=== PATIENT | female | born 1995 | race Caucasian/White ===

== ENCOUNTER 2022-08-25 07:01 | Inpatient (IN) ==
[2022-08-25] MEDS ORDERED: LIDOCAINE 1% LOCAL 20 ML VIAL INFIL PRN (07:20)
[2022-08-25] MEDS ORDERED: OXYTOCIN 30 UNITS/500 ML BAG IV PRN ×2 (07:20)
[2022-08-25 07:54] LABS: Hematocrit (blood only) 38.3 % (34.1-44.9); Hemoglobin 13.4 g/dl (12.0-16.0); Mean Corpuscular Volume 94.3 fL (80.0-100.0); Mean Platelet Volume 10.8 fL (9.4-12.3); Platelet Count 242 K/uL (130-400); RDW Coefficient of Variation 13.3 % (11.5-14.5); RDW Standard Deviation 45.5 fL (36.4-46.3); Red Blood Count 4.06 M/uL (3.93-5.22); White Blood Count 12.99 K/ul (4.8-10.8)
[2022-08-25] MEDS: LACTATED RINGER'S 1,000 ML IV PRN ×4 (08:17→21:17)
--- NOTE | 2022-08-25 10:54 | History & Physical Report ---
Date of Service August 25, 2022 Assessment & Plan (1) Polyhydramnios affecting : (2) Gestational diabetes mellitus (GDM) affecting , antepartum: Plan 27 yo G1 at 39 4/7 wga presents for IOL VSS Fetus cat 1 Labor - 1cm on admission, discussed re-attempting kent bulb with pit and pt amenable. 35cc kent placed, pt tolerated well. Did discuss impact of suspected EFW, poly on labor progress, possibility of CPD, would need ot consider judicious use of vacuum if comes to that. Pt and verbalized understanding A1GDM - normal BG on admit GBS neg epidural prn Admission and Anticipated Discharge Date Admission Date: August 25, 2022 History of Present Illness Chief Complaint: IOL Primary Care Provider: Alexandrea Hawk 27 yo G1 at 39 4/7 wga w/ WHIT 08/28 by LMP presents for IOL due to poly, A1GDM. Of note, baby is suspected to be LGA. +FM; denies regular ctx, LOF, VB. Kent bulb was placed last evening but fell out shortly before discharge PNI: Polyhydramnios A1GDM Past [employer] Hx: G1 q25d cycles denies hx STIs 05/2019 neg cyto Allergies Allergy/AdvReac Type Severity Reaction Status Date / Time No Known Allergies Allergy Verified 08/22/22 11:25 Home Medications Medication Instructions Recorded Confirmed Type prenat.vits,dafne,yqz-[id number] 1 tab PO DAILY 01/14/22 08/25/22 History acetone (urine) test (Ketone Urine #50 ea 06/27/22 08/22/22 Rx Test strips) blood sugar diagnostic (OneTouch #150 ea 06/27/22 08/22/22 Rx Verio test strips) blood-glucose meter (OneTouch #1 ea 06/27/22 08/22/22 Rx Verio Reflect Meter) lancets 33 gauge (OneTouch Delica #150 ea 06/27/22 08/22/22 Rx Lancets) Patient History Medical History No chronic diseases present Surgical History S/P wisdom tooth extraction Family History Mother Ovarian cancer Stroke Bladder cancer Grandmother (Maternal) Kidney disease Social History Smoking Status: Never smoker Second Hand Exposure: No; Hx Alcohol Use: No Hx Substance Use: No Preferred Language: Faroese Communication Ability: Effective 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 current occupational status: employed current occupation: [employer]. Other Information That Helps Us Care for You: No Feels Safe at Home: Yes Safety Concerns: Feels Safe At This Time Assistive Devices: None Physical Exam Genitourinary: OB Exam Abdomen: + vertex and + estimated weight (8-9) Manual OB Exam: + cervical dilation 1 cm, + cervical effacement 50% and + station high OB Exam Monitor Tracing: + external FHT monitor used, + external uterine monitor used (irreg) and + category I (140/mod/+accel/-decel) Results & Data ([facility]) Vital Signs (Past 12 Hours) Vital Signs Temp Pulse Resp BP 08/25/22 07:23 98.1 F 18 08/25/22 10:08 92 H 126/78 08/25/22 09:02 90 121/75 08/25/22 08:17 97 H 123/79 08/25/22 07:20 88 135/84 Laboratory Results OB Labs: Blood Type AB Positive 01/21/22 Antibody Screen NEGATIVE 01/21/22 Hemoglobin 12.9 g/dl (12.0-16.0) 06/13/22 Hematocrit 36.4 % (34.1-44.9) 06/13/22 Mean Corpuscular Volume 94.3 fL (80.0-100.0) 06/13/22 Platelet Count 240 K/uL (130-400) 06/13/22 Rubella IgG Antibody Immune (Immune) 01/21/22 Rapid Plasma Reagin Nonreactive (Nonreactive) 01/21/22 Hepatitis B Surface Antigen. NON-REACTIVE (NON-REACTIVE) 01/21/22 Hepatitis C Antibody (EIA) NON-REACTIVE (NON-REACTIVE) 01/21/22 HIV (1&2) Ag and Ab Confirmation NON-REACTIVE (NON-REACTIVE) 01/21/22 Glucose 1 Hour 50 gm Load 139 mg/dl (70-130) H 06/10/22 OB Optional Labs: Chlamydia trachomatis RNA NOT DETECTED (NOT DETECTED) 01/21/22 Neisseria gonorrhoeae RNA NOT DETECTED (NOT DETECTED) 01/21/22 Labs Reviewed: cf/sma neg --smp declines cfDNA, quad and msafp --smp GBS neg Diagnostic Findings 08/06 3745g 98% post plac Coding Level of Care Code None Diagnoses Polyhydramnios affecting O40.9XX0 Gestational diabetes mellitus (GDM) affecting , antepartum O24.419
--- NOTE | 2022-08-25 13:35 | Labor Progress Brief Note ---
Date of Service August 25, 2022 Subjective Feeling better following kent bulb expulsion Assessment & Plan (1) Polyhydramnios affecting : (2) Gestational diabetes mellitus (GDM) affecting , antepartum: Plan 27 yo G1 at 39 4/7 wga presents for IOL VSS Fetus cat 1 Labor - kent bulb out, continue induction A1GDM - normal BG on admit, q4 GBS neg epidural prn Admission and Anticipated Discharge Date Admission Date: August 25, 2022 Physical Exam Genitourinary: Manual OB Exam: + cervical dilation 3 cm, + cervical effacement 50% and + station high OB Exam Monitor Tracing: + external FHT monitor used, + external uterine monitor used (q4) and + category I (135-140/mod/+accel/-decel) Results & Data ([facility]) Vital Signs (Past 12 Hours) Vital Signs Temp Pulse Resp BP 08/25/22 07:23 98.1 F 18 08/25/22 13:08 99 H 18 130/85 08/25/22 12:14 92 H 133/91 08/25/22 11:04 98.1 F 98 H 16 121/76 08/25/22 10:08 92 H 126/78 08/25/22 09:02 90 121/75 08/25/22 08:17 97 H 123/79 08/25/22 07:20 88 135/84 Coding Level of Care Code None Diagnoses Polyhydramnios affecting O40.9XX0 Gestational diabetes mellitus (GDM) affecting , antepartum O24.419
[2022-08-25] MEDS ORDERED: fentaNYL citrate 100 MCG/2 ML VIAL ONE (17:05)
[2022-08-25] MEDS ORDERED: ePHEDrine sulfate 50 MG/ML AMP ONE (17:05)
[2022-08-25] MEDS ORDERED: SODIUM CHLORIDE 0.9% INJ 10 ML VIAL ONE (17:05)
[2022-08-25] MEDS ORDERED: BUPIVACAINE 0.25% 30 ML VIAL ONE (17:05)
[2022-08-25] MEDS ORDERED: LIDOCAINE 2%/EPINEPHRINE 1:200,000 20 ML SDV ONE (17:05)
[2022-08-25] MEDS ORDERED: fentaNYL 2MCG/ML ROPIVACAINE 1.25MG/ML 100 ML BAG EPI ONE (17:06)
[2022-08-25] MEDS ORDERED: ePHEDrine sulfate 50 MG/ML AMP IV PRN (18:01)
[2022-08-25] MEDS ORDERED: diphenhydrAMINE 50 MG/ML VIAL IV PRN (18:01)
[2022-08-25] MEDS ORDERED: NALOXONE HCL 1 MG in SODIUM CHLORIDE 0.9% 1000ML 1,000 ML IV PRN (18:01)
[2022-08-25] MEDS ORDERED: fentaNYL 2MCG/ML ROPIVACAINE 1.25MG/ML 100 ML BAG EPI PRN (18:01)
[2022-08-25] MEDS ORDERED: NALOXONE HCL 0.4 MG/1 ML VIAL/CARP IV PRN (18:01)
[2022-08-25] MEDS ORDERED: NALBUPHINE HCL INJ 10 MG/ML AMP IV PRN (18:01)
--- NOTE | 2022-08-25 18:01 | Anesthesiology Consultation ---
Date of Service August 25, 2022 Assessment & Plan Chart Review Chart Review: Acceptable Risk for Labor Epidural Consults Requested none History Height/Weight Height: 5 ft Weight: 75.296 kg Allergies Allergy/AdvReac Type Severity Reaction Status Date / Time No Known Allergies Allergy Verified 08/22/22 11:25 Medications Home Medications Medication Instructions Recorded Confirmed Last Taken prenat.vits,dafne,uds-rwmt-mkogx 1 tab PO DAILY 01/14/22 08/25/22 08/24/22 acetone (urine) test (Ketone Urine #50 ea 06/27/22 08/22/22 Unknown Test strips) blood sugar diagnostic (OneTouch #150 ea 06/27/22 08/22/22 Unknown Verio test strips) blood-glucose meter (OneTouch #1 ea 06/27/22 08/22/22 Unknown Verio Reflect Meter) lancets 33 gauge (OneTouch Delica #150 ea 06/27/22 08/22/22 Unknown Lancets) Active Medications Generic Name Dose Route Start Last Admin Trade Name Freq PRN Reason Stop Dose Admin Oxytocin 30 units in 500 mls @ 10 mls/hr 08/25/22 07:20 08/25/22 14:00 Pitocin IV 08/27/22 07:19 0.6 units/hr .Q24H PRN 10 mls/hr Labor Induction/Augmentation Titration Protocol 0.6 UNITS/HR Lactated Ringer's 1,000 mls @ 125 mls/hr 08/25/22 07:20 08/25/22 17:00 Lr IV 08/27/22 07:19 999 mls/hr .Q8H PRN Administration L&D Protocol Protocol Past Medical History Medical History No chronic diseases present Past Family History Family History Mother Ovarian cancer Stroke Bladder cancer Grandmother (Maternal) Kidney disease Past Surgical History Surgical History S/P wisdom tooth extraction Social History Smoking Status: Never smoker Hx Alcohol Use: No Hx Substance Use: No substance use type: does not use Physical Exam Vital Signs Last Vital Signs Temp 36.6 C 08/25/22 15:00 Pulse 88 08/25/22 18:00 Resp 18 08/25/22 15:00 BP 117/65 08/25/22 18:00 Pulse Ox 99 08/25/22 17:56 Testing Laboratory Results 08/25/22 07:40 08/25/22 08/25/22 08/25/22 16:01 12:16 07:47 POC Glucose 91 82 85
--- NOTE | 2022-08-25 18:35 | Labor Progress Brief Note ---
Date of Service August 25, 2022 Subjective comfortable w/epidural Assessment & Plan (1) Polyhydramnios affecting : (2) Gestational diabetes mellitus (GDM) affecting , antepartum: Plan 27 yo G1 at 39 4/7 wga presents for IOL VSS Fetus cat 1 Labor - pit at 10, now s/p arom. Continue induction A1GDM - normal BG on admit, q4 GBS neg epidural in place Admission and Anticipated Discharge Date Admission Date: August 25, 2022 Physical Exam Genitourinary: Manual OB Exam: + cervical dilation 4 cm, + cervical effacement 50%, + station -2 and + amniotic fluid (arom clear) OB Exam Monitor Tracing: + external FHT monitor used, + external uterine monitor used (q2-4) and + category I (135-140/mod/+accel/-decel) Results & Data ([facility]) Vital Signs (Past 12 Hours) Vital Signs Temp Pulse Resp BP Pulse Ox 08/25/22 18:00 18 08/25/22 07:23 98.1 F 18 08/25/22 18:31 95 H 100 08/25/22 18:27 78 147/77 H 08/25/22 18:26 79 100 08/25/22 18:21 86 99 08/25/22 18:22 81 108/55 L 08/25/22 18:16 93 H 98 08/25/22 18:17 93 H 107/63 08/25/22 18:11 94 H 99 08/25/22 18:12 93 H 109/55 L 08/25/22 18:06 96 H 100 08/25/22 18:07 97 H 124/59 L 08/25/22 18:01 105 H 99 08/25/22 18:00 88 117/65 08/25/22 17:58 109 H 118/68 08/25/22 17:56 99 08/25/22 17:56 90 08/25/22 17:56 84 120/66 08/25/22 17:54 94 H 122/66 08/25/22 17:51 100 H 100 08/25/22 17:46 105 H 100 08/25/22 17:41 101 H 100 08/25/22 17:36 120 H 100 08/25/22 17:31 115 H 99 08/25/22 17:26 117 H 99 08/25/22 17:21 129 H 98 08/25/22 17:16 121 H 97 08/25/22 17:02 114 H 129/85 08/25/22 16:02 99 H 130/83 08/25/22 15:00 18 08/25/22 15:00 97.9 F 18 08/25/22 14:58 99 H 130/85 08/25/22 13:58 88 131/76 08/25/22 13:08 99 H 18 130/85 08/25/22 12:14 92 H 133/91 08/25/22 11:04 98.1 F 98 H 16 121/76 08/25/22 10:08 92 H 126/78 08/25/22 09:02 90 121/75 08/25/22 08:17 97 H 123/79 08/25/22 07:20 88 135/84 Coding Level of Care Code None Diagnoses Polyhydramnios affecting O40.9XX0 Gestational diabetes mellitus (GDM) affecting , antepartum O24.419
--- NOTE | 2022-08-26 00:13 | Labor Progress Brief Note ---
Date of Service August 26, 2022 Subjective resting comfortably, occ pressure Assessment & Plan (1) Polyhydramnios affecting : (2) Gestational diabetes mellitus (GDM) affecting , antepartum: Plan 27 yo G1 at 39 4/7 wga presents for IOL VSS Fetus cat 1 Labor - pit at 12, progress noted in effacement and station. Feels like baby was maybe asynclitic earlier and can feel where it was so will continue maternal repositioning to see if will help exam A1GDM GBS neg epidural in place Admission and Anticipated Discharge Date Admission Date: August 25, 2022 Physical Exam Genitourinary: Manual OB Exam: + cervical dilation 4 cm, + cervical effacement 60% and + station -2 and -1 OB Exam Monitor Tracing: + external FHT monitor used, + external uterine monitor used (q2-4) and + category I (125/mod/+accel/occ early decel) Results & Data ([facility]) Vital Signs (Past 12 Hours) Vital Signs Temp Pulse Resp BP Pulse Ox 08/25/22 18:00 18 08/26/22 00:06 129 H 99 08/26/22 00:01 121 H 98 08/25/22 23:56 122 H 98 08/25/22 23:51 139 H 98 08/25/22 23:46 133 H 99 08/25/22 23:41 124 H 97 08/25/22 23:36 126 H 99 08/25/22 23:37 127 H 127/66 08/25/22 23:31 126 H 96 08/25/22 23:26 117 H 96 08/25/22 23:22 123 H 123/61 08/25/22 23:21 118 H 96 08/25/22 23:16 120 H 96 08/25/22 23:11 117 H 97 08/25/22 23:06 121 H 96 08/25/22 23:07 120 H 126/66 08/25/22 23:01 111 H 97 08/25/22 22:56 112 H 97 08/25/22 22:52 116 H 132/72 08/25/22 22:51 127 H 98 08/25/22 22:46 108 H 97 08/25/22 22:41 108 H 97 08/25/22 22:36 113 H 97 08/25/22 22:37 114 H 119/70 08/25/22 22:31 114 H 97 08/25/22 22:26 110 H 99 08/25/22 22:24 115 H 135/80 08/25/22 22:21 108 H 99 08/25/22 22:16 107 H 99 08/25/22 22:11 111 H 98 08/25/22 22:08 104 H 126/69 08/25/22 22:06 117 H 99 08/25/22 22:01 109 H 100 08/25/22 21:56 113 H 97 08/25/22 21:52 108 H 135/88 08/25/22 21:51 106 H 98 08/25/22 21:46 115 H 99 08/25/22 21:41 102 H 100 08/25/22 21:36 120 H 100 08/25/22 21:37 106 H 119/61 08/25/22 21:31 98 H 98 08/25/22 21:26 112 H 98 08/25/22 21:21 108 H 98 08/25/22 21:22 109 H 121/59 L 08/25/22 21:16 100 H 98 08/25/22 21:11 102 H 98 08/25/22 21:08 106 H 123/56 L 08/25/22 21:06 101 H 98 08/25/22 21:01 100 H 98 08/25/22 20:56 120 H 100 08/25/22 20:51 120 H 96 08/25/22 20:52 98.6 F 125 H 16 127/73 08/25/22 20:46 112 H 99 08/25/22 20:41 110 H 99 08/25/22 20:39 115 H 133/74 08/25/22 20:36 111 H 98 08/25/22 20:31 124 H 99 08/25/22 20:26 114 H 98 08/25/22 20:23 117 H 131/73 08/25/22 20:21 146 H 100 08/25/22 20:16 111 H 100 08/25/22 20:11 109 H 100 08/25/22 20:08 106 H 132/72 08/25/22 20:06 107 H 98 08/25/22 20:01 107 H 99 08/25/22 19:56 108 H 99 08/25/22 19:51 113 H 100 08/25/22 19:52 107 H 140/75 08/25/22 19:46 106 H 100 08/25/22 19:41 101 H 99 08/25/22 19:38 103 H 128/72 08/25/22 19:36 102 H 100 08/25/22 19:31 119 H 100 08/25/22 19:26 112 H 99 08/25/22 19:23 93 H 126/70 08/25/22 19:21 102 H 100 08/25/22 19:16 99 H 99 08/25/22 19:11 106 H 99 08/25/22 19:06 98.6 F 98 H 17 125/67 100 08/25/22 18:45 16 08/25/22 18:45 16 08/25/22 19:01 97 H 100 08/25/22 19:02 99 H 138/72 08/25/22 18:56 98 H 123/73 99 08/25/22 18:51 102 H 100 08/25/22 18:52 97 H 124/72 08/25/22 18:48 88 122/73 08/25/22 18:46 96 H 99 08/25/22 18:15 18 08/25/22 18:15 18 08/25/22 18:30 18 08/25/22 18:30 99.1 F 18 08/25/22 18:41 93 H 127/70 100 08/25/22 18:36 90 118/63 99 08/25/22 18:33 94 H 128/74 08/25/22 18:31 95 H 100 08/25/22 18:27 78 147/77 H 08/25/22 18:26 79 100 08/25/22 18:21 86 99 08/25/22 18:22 81 108/55 L 08/25/22 18:16 93 H 98 08/25/22 18:17 93 H 107/63 08/25/22 18:11 94 H 99 08/25/22 18:12 93 H 109/55 L 08/25/22 18:06 96 H 100 08/25/22 18:07 97 H 124/59 L 08/25/22 18:01 105 H 99 08/25/22 18:00 88 117/65 08/25/22 17:58 109 H 118/68 08/25/22 17:56 99 08/25/22 17:56 90 08/25/22 17:56 84 120/66 08/25/22 17:54 94 H 122/66 08/25/22 17:51 100 H 100 08/25/22 17:46 105 H 100 08/25/22 17:41 101 H 100 08/25/22 17:36 120 H 100 08/25/22 17:31 115 H 99 08/25/22 17:26 117 H 99 08/25/22 17:21 129 H 98 08/25/22 17:16 121 H 97 08/25/22 17:02 114 H 129/85 08/25/22 16:02 99 H 130/83 08/25/22 15:00 18 08/25/22 15:00 97.9 F 18 08/25/22 14:58 99 H 130/85 08/25/22 13:58 88 131/76 08/25/22 13:08 99 H 18 130/85 08/25/22 12:14 92 H 133/91 Coding Level of Care Code None Diagnoses Polyhydramnios affecting O40.9XX0 Gestational diabetes mellitus (GDM) affecting , antepartum O24.419
[2022-08-26] MEDS ORDERED: NURSING L&D Epidural Breakthrough Pain Update ONE (02:44)
[2022-08-26] MEDS ORDERED: fentaNYL citrate 100 MCG/2 ML VIAL ONE ×2 (02:48→06:15)
--- NOTE | 2022-08-26 02:56 | Communication Note ---
Date of Service: August 26, 2022 Called by staff for pt c/o pain Bolused epidural with 5cc 2% lidocaine plus fentanyl 100mcg.
[2022-08-26] MEDS: LACTATED RINGER'S 1,000 ML IV PRN (05:13)
--- NOTE | 2022-08-26 06:00 | Labor Progress Brief Note ---
Date of Service August 26, 2022 Subjective Feeling back pain Assessment & Plan (1) Polyhydramnios affecting : (2) Gestational diabetes mellitus (GDM) affecting , antepartum: Plan 27 yo G1 at 39 4/7 wga presents for IOL VSS Fetus cat 1 Labor - pit at 16, progress noted. ?OP position due to back pain, pt requesting redose so will try to get. Continue maternal repositioning to try to change positioning A1GDM GBS neg epidural in place Admission and Anticipated Discharge Date Admission Date: August 25, 2022 Physical Exam Genitourinary: Manual OB Exam: + cervical dilation 6 cm, + cervical effacement 70% and + station 0 OB Exam Monitor Tracing: + external FHT monitor used, + external uterine monitor used (q2-4) and + category I (125-130/mod/+accel/occ early decel) Results & Data ([facility]) Vital Signs (Past 12 Hours) Vital Signs Temp Pulse Resp BP Pulse Ox 08/25/22 18:00 18 08/26/22 05:56 132 H 99 08/26/22 05:54 137 H 136/94 08/26/22 05:51 141 H 97 08/26/22 05:46 128 H 100 08/26/22 05:41 133 H 95 08/26/22 05:36 128 H 100 08/26/22 05:31 139 H 100 08/26/22 05:26 132 H 99 08/26/22 05:24 130 H 134/79 08/26/22 05:21 128 H 98 08/26/22 05:16 130 H 99 08/26/22 05:11 128 H 96 08/26/22 05:08 127 H 121/58 L 08/26/22 05:06 127 H 100 08/26/22 05:01 126 H 98 08/26/22 04:56 134 H 99 08/26/22 04:53 120 H 132/65 08/26/22 04:51 119 H 98 08/26/22 04:46 126 H 99 08/26/22 04:41 120 H 98 08/26/22 04:39 120 H 129/67 08/26/22 04:36 118 H 98 08/26/22 04:31 125 H 97 08/26/22 04:26 123 H 98 08/26/22 04:24 98.6 F 123 H 16 118/67 08/26/22 04:21 122 H 95 08/26/22 04:18 124 H 94 08/26/22 04:16 116 H 95 08/26/22 04:11 115 H 100 08/26/22 04:06 136 H 99 08/26/22 04:03 121 H 123/71 08/26/22 04:01 124 H 97 08/26/22 03:59 105 H 135/75 08/26/22 03:56 122 H 97 08/26/22 03:53 107 H 128/67 08/26/22 03:51 116 H 97 08/26/22 03:48 112 H 130/71 08/26/22 03:46 118 H 98 08/26/22 03:43 114 H 128/72 08/26/22 03:41 113 H 97 08/26/22 03:38 117 H 122/66 08/26/22 03:36 116 H 97 08/26/22 03:33 113 H 127/69 08/26/22 03:31 115 H 96 08/26/22 03:28 115 H 116/53 L 08/26/22 03:26 110 H 96 08/26/22 03:23 112 H 108/51 L 08/26/22 03:21 113 H 96 08/26/22 03:19 109 H 112/57 L 08/26/22 03:16 119 H 96 08/26/22 03:14 109 H 111/54 L 08/26/22 03:11 109 H 96 08/26/22 03:09 111 H 109/54 L 08/26/22 03:06 111 H 96 08/26/22 03:03 123 H 120/55 L 08/26/22 03:01 121 H 97 08/26/22 02:56 101 H 97 08/26/22 02:55 122 H 127/76 08/26/22 02:53 103 H 121/70 08/26/22 02:51 108 H 96 08/26/22 02:50 113 H 129/76 08/26/22 02:46 116 H 95 08/26/22 02:41 128 H 97 08/26/22 02:37 121 H 127/72 08/26/22 02:36 118 H 97 08/26/22 02:31 124 H 100 08/26/22 02:26 116 H 100 08/26/22 02:21 123 H 100 08/26/22 02:22 117 H 120/67 08/26/22 02:18 122 H 92 08/26/22 02:16 128 H 98 08/26/22 02:11 119 H 96 08/26/22 02:08 98.2 F 107 H 18 126/65 08/26/22 02:06 110 H 97 08/26/22 02:01 117 H 97 08/26/22 01:56 115 H 100 08/26/22 01:54 116 H 115/57 L 08/26/22 01:51 111 H 100 08/26/22 01:46 115 H 100 08/26/22 01:41 118 H 99 08/26/22 01:37 120 H 121/57 L 08/26/22 01:36 126 H 98 08/26/22 01:31 132 H 99 08/26/22 01:26 125 H 96 08/26/22 01:21 121 H 98 08/26/22 01:22 120 H 140/78 08/26/22 01:16 130 H 100 08/26/22 01:11 124 H 98 08/26/22 01:09 127 H 131/75 08/26/22 01:06 115 H 98 08/26/22 01:01 118 H 97 08/26/22 00:56 120 H 98 08/26/22 00:51 120 H 100 08/26/22 00:46 118 H 98 08/26/22 00:41 111 H 100 08/26/22 00:39 98.4 F 112 H 16 138/96 08/26/22 00:36 105 H 98 08/26/22 00:31 127 H 99 08/26/22 00:26 102 H 100 08/26/22 00:22 111 H 124/57 L 08/26/22 00:21 108 H 98 08/26/22 00:16 115 H 98 08/26/22 00:11 113 H 99 08/26/22 00:07 134 H 132/57 L 08/26/22 00:06 129 H 99 08/26/22 00:01 121 H 98 08/25/22 23:56 122 H 98 08/25/22 23:51 139 H 98 08/25/22 23:46 133 H 99 08/25/22 23:41 124 H 97 08/25/22 23:36 126 H 99 08/25/22 23:37 127 H 127/66 08/25/22 23:31 126 H 96 08/25/22 23:26 117 H 96 08/25/22 23:22 123 H 123/61 08/25/22 23:21 118 H 96 08/25/22 23:16 120 H 96 08/25/22 23:11 117 H 97 08/25/22 23:06 121 H 96 08/25/22 23:07 120 H 126/66 08/25/22 23:01 111 H 97 08/25/22 22:56 112 H 97 08/25/22 22:52 116 H 132/72 08/25/22 22:51 127 H 98 08/25/22 22:46 108 H 97 08/25/22 22:41 108 H 97 08/25/22 22:36 113 H 97 08/25/22 22:37 114 H 119/70 08/25/22 22:31 114 H 97 08/25/22 22:26 110 H 99 08/25/22 22:24 115 H 135/80 08/25/22 22:21 108 H 99 08/25/22 22:16 107 H 99 08/25/22 22:11 111 H 98 08/25/22 22:08 104 H 126/69 08/25/22 22:06 117 H 99 08/25/22 22:01 109 H 100 08/25/22 21:56 113 H 97 08/25/22 21:52 108 H 135/88 08/25/22 21:51 106 H 98 08/25/22 21:46 115 H 99 08/25/22 21:41 102 H 100 08/25/22 21:36 120 H 100 08/25/22 21:37 106 H 119/61 08/25/22 21:31 98 H 98 08/25/22 21:26 112 H 98 08/25/22 21:21 108 H 98 08/25/22 21:22 109 H 121/59 L 08/25/22 21:16 100 H 98 08/25/22 21:11 102 H 98 08/25/22 21:08 106 H 123/56 L 08/25/22 21:06 101 H 98 08/25/22 21:01 100 H 98 08/25/22 20:56 120 H 100 08/25/22 20:51 120 H 96 08/25/22 20:52 98.6 F 125 H 16 127/73 08/25/22 20:46 112 H 99 08/25/22 20:41 110 H 99 08/25/22 20:39 115 H 133/74 08/25/22 20:36 111 H 98 08/25/22 20:31 124 H 99 08/25/22 20:26 114 H 98 08/25/22 20:23 117 H 131/73 08/25/22 20:21 146 H 100 08/25/22 20:16 111 H 100 08/25/22 20:11 109 H 100 08/25/22 20:08 106 H 132/72 08/25/22 20:06 107 H 98 08/25/22 20:01 107 H 99 08/25/22 19:56 108 H 99 08/25/22 19:51 113 H 100 08/25/22 19:52 107 H 140/75 08/25/22 19:46 106 H 100 08/25/22 19:41 101 H 99 08/25/22 19:38 103 H 128/72 08/25/22 19:36 102 H 100 08/25/22 19:31 119 H 100 08/25/22 19:26 112 H 99 08/25/22 19:23 93 H 126/70 08/25/22 19:21 102 H 100 08/25/22 19:16 99 H 99 08/25/22 19:11 106 H 99 08/25/22 19:06 98.6 F 98 H 17 125/67 100 08/25/22 18:45 16 08/25/22 18:45 16 08/25/22 19:01 97 H 100 08/25/22 19:02 99 H 138/72 08/25/22 18:56 98 H 123/73 99 08/25/22 18:51 102 H 100 08/25/22 18:52 97 H 124/72 08/25/22 18:48 88 122/73 08/25/22 18:46 96 H 99 08/25/22 18:15 18 08/25/22 18:15 18 08/25/22 18:30 18 08/25/22 18:30 99.1 F 18 08/25/22 18:41 93 H 127/70 100 08/25/22 18:36 90 118/63 99 08/25/22 18:33 94 H 128/74 08/25/22 18:31 95 H 100 08/25/22 18:27 78 147/77 H 08/25/22 18:26 79 100 08/25/22 18:21 86 99 08/25/22 18:22 81 108/55 L 08/25/22 18:16 93 H 98 08/25/22 18:17 93 H 107/63 08/25/22 18:11 94 H 99 08/25/22 18:12 93 H 109/55 L 08/25/22 18:06 96 H 100 08/25/22 18:07 97 H 124/59 L 08/25/22 18:01 105 H 99 08/25/22 18:00 88 117/65 Coding Level of Care Code None Diagnoses Polyhydramnios affecting O40.9XX0 Gestational diabetes mellitus (GDM) affecting , antepartum O24.419
--- NOTE | 2022-08-26 06:35 | Communication Note ---
Date of Service: August 26, 2022 Called by RN for pt c/o pain. 2% lido 5cc plus fentanyl 100mcg given. After several minutes, nurse reported that pt stated she was pain free and fell asl eep.
[2022-08-26] MEDS ORDERED: ROPIVACAINE 0.5% 5 MG/ML 30 ML VIAL ONE ×2 (08:17→11:28)
[2022-08-26] MEDS ORDERED: LIDOCAINE 2%/EPINEPHRINE 1:200,000 20 ML SDV ONE (08:17)
--- NOTE | 2022-08-26 09:39 | Labor Progress Brief Note ---
Date of Service August 26, 2022 Subjective I met patient in room 422 after receiving signout from Alisa and an update from FLORENCIA Mena. Patient's chart including course of her induction thus far was reviewed. On Aug 06, 2022, patient had EFW of 3745g +/- 547g (8lb 4oz) per ultrasound. Upper end of range was therefore 4292gm. Her scheduled IOL was set for Aug 25, 2022. The patient was gestational diabetic and made aware of the implications for delivery, and preferred vaginal delivery attempt. Patient had kent placed the night before last. It came out rather quickly. She was admitted yesterday morning and felt to be 1cm so new kent was placed as pitocin was started. Patient underwent AROM at about 1830 last night. Patient was checked by nursing overnight and felt to have reached 9cm. She was checked by Alisa at 6:00 and felt to be 6cm, with pit @ 16. She was painful and requested epidural redose at 6:30. At 7:30 she had a cervical exam by nursing who felt she was 8cm. At 8:30 patient requested and received another epidural redose. At 8:40 I met and examined the patient and found her to be 6cm/90/0 with significant caput succedaneum and molding present. I counseled the patient and FOB on these findings, explaining each in detail. I acknowledged the challenge of cervical exams when significant molding and caput are present which likely accounts for nursing exams ranging from 8-9cm and up to 100% effacement. Ultimately I agree with Dr. Cuellar and that I suspect no true cervical change has occurred since at least 6am today. Pitocin was at 20 at the time of that exam. I explained the role of an IUPC in garnering data on contraction strength and helping decide whether additional pitocin is required to achieve delivery, or whether the size is incompatible with passage through the pelvis. I discussed the risks and benefits. They voiced agreement to placement of that device, which was accomplished without difficulty, and the device filled with clear amniotic fluid. I asked if they had preferences I should be aware of as I was assuming care at the start of a shift. Patient voiced that she is "getting tired of this and wants to have the baby soon." FOB voiced that he "wants to see her at least push before we go to a ." I acknowledged both of their wishes. I explained to FOB that I would be most happy if we can achieve both pushing and vaginal delivery with a safe outcome for all. However, in order to push she needs to reach complete cervical dilation, and doing that requires the head to be able to press upon the cervix until it fully opens. The IUPC and pitocin are the tools we use to try to make that happen if it is able to happen, which depends to some degree upon the size of the baby and the size of the pelvis being compatible. He voiced understanding. Assessment & Plan (1) Gestational diabetes mellitus (GDM) affecting , antepartum: Plan: See above. Per patient and FOB wishes, IOL proceeds with LGA, Poly, GDM all acknowledged. Pt and FOB made aware of concerns for cephalopelvic disproportion at several points along this past month, including today by this physician, and voice interest in continuing IOL process. IUPC placed and at this time individual contraction strength is excellent so pitocin ceiling not increased above 20. status reassuring and will continue with assessment of cervical progress over time. (2) Polyhydramnios affecting : (3) Encounter for induction of labor: Admission and Anticipated Discharge Date Admission Date: August 25, 2022 Physical Exam Physical Exam: Resting semi-milligan R tilt, not masked, FOB at bedside with mask on. Constitutional: well developed and well nourished; no acute distress Eyes: + anicteric sclerae Respiratory: Breathing unlabored Genitourinary: see above. FHT Cat 1. Initial few ctx with MVU 50-75 but pattern does show coupling and grouping. Results & Data ([facility]) Vital Signs (Past 12 Hours) Vital Signs Temp Pulse Resp BP Pulse Ox 08/26/22 07:05 99.5 F 18 08/26/22 09:16 103 H 99 08/26/22 09:14 107 H 125/70 08/26/22 09:11 112 H 97 08/26/22 08:30 18 08/26/22 08:30 18 08/26/22 09:10 112 H 121/68 08/26/22 09:06 110 H 97 08/26/22 09:04 108 H 124/67 08/26/22 09:01 118 H 98 08/26/22 08:59 109 H 128/70 08/26/22 08:56 119 H 99 08/26/22 08:54 126 H 121/69 08/26/22 08:51 128 H 99 08/26/22 08:49 125 H 132/78 08/26/22 08:46 125 H 98 08/26/22 08:44 133 H 125/69 08/26/22 08:41 122 H 99 08/26/22 08:39 122 H 128/77 08/26/22 08:36 136 H 98 08/26/22 08:34 129 H 127/74 08/26/22 08:31 127 H 123/76 98 08/26/22 08:26 119 H 97 08/26/22 08:25 112 H 137/77 08/26/22 08:21 112 H 98 08/26/22 08:19 120 H 139/82 08/26/22 08:07 99.0 F 08/26/22 07:05 18 08/26/22 07:05 99.5 F 18 08/26/22 08:16 132 H 98 08/26/22 08:15 118 H 132/80 08/26/22 08:11 137 H 99 08/26/22 08:09 136 H 127/76 08/26/22 08:06 130 H 99 08/26/22 08:04 142 H 120/67 08/26/22 08:01 151 H 98 08/26/22 07:56 155 H 95 08/26/22 07:55 114 H 157/79 H 08/26/22 07:51 122 H 98 08/26/22 07:50 118 H 104/58 L 08/26/22 07:46 120 H 108/59 L 97 08/26/22 07:41 128 H 96 08/26/22 07:40 130 H 127/75 08/26/22 07:36 148 H 97 08/26/22 07:35 141 H 120/67 08/26/22 07:31 121 H 96 08/26/22 07:30 141 H 119/56 L 08/26/22 07:26 129 H 97 08/26/22 07:25 121 H 121/59 L 08/26/22 07:21 116 H 96 08/26/22 07:20 116 H 109/58 L 08/26/22 07:16 120 H 95 08/26/22 07:15 113 H 110/56 L 08/26/22 07:11 95 08/26/22 07:11 125 H 08/26/22 07:11 118 H 113/53 L 08/26/22 07:06 121 H 95 08/26/22 07:04 123 H 117/53 L 08/26/22 07:01 117 H 95 08/26/22 07:00 120 H 107/52 L 08/26/22 06:56 120 H 95 08/26/22 06:54 123 H 104/54 L 08/26/22 06:51 113 H 111/51 L 96 08/26/22 06:46 114 H 96 08/26/22 06:45 121 H 107/52 L 08/26/22 06:41 122 H 96 08/26/22 06:39 112 H 106/51 L 08/26/22 06:36 97 08/26/22 06:36 119 H 08/26/22 06:36 117 H 105/55 L 08/26/22 06:31 117 H 97 08/26/22 06:29 118 H 110/55 L 08/26/22 06:26 110 H 97 08/26/22 06:25 114 H 110/51 L 08/26/22 06:21 108 H 103/54 L 97 08/26/22 06:16 116 H 100 08/26/22 06:14 97.9 F 117 H 16 126/89 08/26/22 06:11 143 H 99 08/26/22 06:06 120 H 99 08/26/22 06:01 125 H 97 08/26/22 05:56 132 H 99 08/26/22 05:54 137 H 136/94 08/26/22 05:51 141 H 97 08/26/22 05:46 128 H 100 08/26/22 05:41 133 H 95 08/26/22 05:36 128 H 100 08/26/22 05:31 139 H 100 08/26/22 05:26 132 H 99 08/26/22 05:24 130 H 134/79 08/26/22 05:21 128 H 98 08/26/22 05:16 130 H 99 08/26/22 05:11 128 H 96 08/26/22 05:08 127 H 121/58 L 08/26/22 05:06 127 H 100 08/26/22 05:01 126 H 98 08/26/22 04:56 134 H 99 08/26/22 04:53 120 H 132/65 08/26/22 04:51 119 H 98 08/26/22 04:46 126 H 99 08/26/22 04:41 120 H 98 08/26/22 04:39 120 H 129/67 08/26/22 04:36 118 H 98 08/26/22 04:31 125 H 97 08/26/22 04:26 123 H 98 08/26/22 04:24 98.6 F 123 H 16 118/67 08/26/22 04:21 122 H 95 08/26/22 04:18 124 H 94 08/26/22 04:16 116 H 95 08/26/22 04:11 115 H 100 08/26/22 04:06 136 H 99 08/26/22 04:03 121 H 123/71 08/26/22 04:01 124 H 97 08/26/22 03:59 105 H 135/75 08/26/22 03:56 122 H 97 08/26/22 03:53 107 H 128/67 08/26/22 03:51 116 H 97 08/26/22 03:48 112 H 130/71 08/26/22 03:46 118 H 98 08/26/22 03:43 114 H 128/72 08/26/22 03:41 113 H 97 08/26/22 03:38 117 H 122/66 08/26/22 03:36 116 H 97 08/26/22 03:33 113 H 127/69 08/26/22 03:31 115 H 96 08/26/22 03:28 115 H 116/53 L 08/26/22 03:26 110 H 96 08/26/22 03:23 112 H 108/51 L 08/26/22 03:21 113 H 96 08/26/22 03:19 109 H 112/57 L 08/26/22 03:16 119 H 96 08/26/22 03:14 109 H 111/54 L 08/26/22 03:11 109 H 96 08/26/22 03:09 111 H 109/54 L 08/26/22 03:06 111 H 96 08/26/22 03:03 123 H 120/55 L 08/26/22 03:01 121 H 97 08/26/22 02:56 101 H 97 08/26/22 02:55 122 H 127/76 08/26/22 02:53 103 H 121/70 08/26/22 02:51 108 H 96 08/26/22 02:50 113 H 129/76 08/26/22 02:46 116 H 95 08/26/22 02:41 128 H 97 08/26/22 02:37 121 H 127/72 08/26/22 02:36 118 H 97 08/26/22 02:31 124 H 100 08/26/22 02:26 116 H 100 08/26/22 02:21 123 H 100 08/26/22 02:22 117 H 120/67 08/26/22 02:18 122 H 92 08/26/22 02:16 128 H 98 08/26/22 02:11 119 H 96 08/26/22 02:08 98.2 F 107 H 18 126/65 08/26/22 02:06 110 H 97 08/26/22 02:01 117 H 97 08/26/22 01:56 115 H 100 08/26/22 01:54 116 H 115/57 L 08/26/22 01:51 111 H 100 08/26/22 01:46 115 H 100 08/26/22 01:41 118 H 99 08/26/22 01:37 120 H 121/57 L 08/26/22 01:36 126 H 98 08/26/22 01:31 132 H 99 08/26/22 01:26 125 H 96 08/26/22 01:21 121 H 98 08/26/22 01:22 120 H 140/78 08/26/22 01:16 130 H 100 08/26/22 01:11 124 H 98 08/26/22 01:09 127 H 131/75 08/26/22 01:06 115 H 98 08/26/22 01:01 118 H 97 08/26/22 00:56 120 H 98 08/26/22 00:51 120 H 100 08/26/22 00:46 118 H 98 08/26/22 00:41 111 H 100 08/26/22 00:39 98.4 F 112 H 16 138/96 08/26/22 00:36 105 H 98 08/26/22 00:31 127 H 99 08/26/22 00:26 102 H 100 08/26/22 00:22 111 H 124/57 L 08/26/22 00:21 108 H 98 08/26/22 00:16 115 H 98 08/26/22 00:11 113 H 99 08/26/22 00:07 134 H 132/57 L 08/26/22 00:06 129 H 99 08/26/22 00:01 121 H 98 08/25/22 23:56 122 H 98 08/25/22 23:51 139 H 98 08/25/22 23:46 133 H 99 08/25/22 23:41 124 H 97 08/25/22 23:36 126 H 99 08/25/22 23:37 127 H 127/66 08/25/22 23:31 126 H 96 08/25/22 23:26 117 H 96 08/25/22 23:22 123 H 123/61 08/25/22 23:21 118 H 96 08/25/22 23:16 120 H 96 08/25/22 23:11 117 H 97 08/25/22 23:06 121 H 96 08/25/22 23:07 120 H 126/66 08/25/22 23:01 111 H 97 08/25/22 22:56 112 H 97 08/25/22 22:52 116 H 132/72 08/25/22 22:51 127 H 98 08/25/22 22:46 108 H 97 08/25/22 22:41 108 H 97 08/25/22 22:36 113 H 97 08/25/22 22:37 114 H 119/70 08/25/22 22:31 114 H 97 08/25/22 22:26 110 H 99 08/25/22 22:24 115 H 135/80 08/25/22 22:21 108 H 99 08/25/22 22:16 107 H 99 08/25/22 22:11 111 H 98 08/25/22 22:08 104 H 126/69 08/25/22 22:06 117 H 99 08/25/22 22:01 109 H 100 08/25/22 21:56 113 H 97 08/25/22 21:52 108 H 135/88 08/25/22 21:51 106 H 98 08/25/22 21:46 115 H 99 08/25/22 21:41 102 H 100 08/25/22 21:36 120 H 100 08/25/22 21:37 106 H 119/61 08/25/22 21:31 98 H 98 08/25/22 21:26 112 H 98 08/25/22 21:21 108 H 98 08/25/22 21:22 109 H 121/59 L Coding Level of Care Code None Diagnoses Gestational diabetes mellitus (GDM) affecting , antepartum O24.419 Polyhydramnios affecting O40.9XX0 Encounter for induction of labor Z34.90
--- NOTE | 2022-08-26 11:13 | Labor Progress Brief Note ---
Date of Service August 26, 2022 Subjective Called to evaluate the patient by Dr. mercado. there has been some discrepancy between the physician's interpretation of the cervix and nursing. Patient has been laboring for several days. she is extremely painful currently and will only allow me to examine her between contractions. This will be her 4th redose of her epidural. Assessment & Plan (1) Encounter for induction of labor: (2) Polyhydramnios affecting : (3) Gestational diabetes mellitus (GDM) affecting , antepartum: Plan I have been called over to evaluate the cervix as another opinion on this very difficult exam. There is cervix all the way around the head so she cannot push at this time. This will be the fourth redose of her epidural. Usually when this has to be done several times, it is an indication that there is probably cpd. Further decisions to be made between the patient and the doctor telephone operator. fetus is category one. Admission and Anticipated Discharge Date Admission Date: August 25, 2022 Physical Exam Physical Exam: cx--very difficult exam. I think . I can feel cervix all the way around the VERY molded head. Additionally there is significant caput on top of the molded head. Therefore the actual station is difficult to determine, I would say -1 to -2, but may be higher. The anterior lip is very edematous. I was unable to check during a contraction toco--q1-2min efm--145 with mod variabiltiy Results & Data ([facility]) Vital Signs (Past 12 Hours) Vital Signs Temp Pulse Resp BP Pulse Ox 08/26/22 07:05 37.5 C 18 08/26/22 11:06 120 H 100 08/26/22 11:04 126 H 149/89 H 08/26/22 11:03 124 H 92 08/26/22 11:01 116 H 99 08/26/22 10:56 122 H 99 08/26/22 10:54 113 H 140/90 08/26/22 10:51 113 H 100 08/26/22 10:50 117 H 152/99 H 08/26/22 10:46 112 H 100 08/26/22 10:45 150 H 140/91 08/26/22 10:41 125 H 96 08/26/22 10:40 123 H 134/96 08/26/22 10:36 112 H 97 08/26/22 10:34 126 H 135/83 08/26/22 10:31 117 H 98 08/26/22 10:29 117 H 136/84 08/26/22 10:26 130 H 99 08/26/22 10:24 122 H 141/87 H 08/26/22 10:21 117 H 99 08/26/22 10:20 120 H 141/77 H 08/26/22 10:16 126 H 99 08/26/22 10:15 115 H 127/63 08/26/22 10:11 109 H 98 08/26/22 10:10 113 H 130/71 08/26/22 10:06 112 H 98 08/26/22 10:05 112 H 117/60 08/26/22 10:01 111 H 98 08/26/22 09:59 105 H 117/60 08/26/22 09:56 106 H 98 08/26/22 09:54 116 H 110/55 L 08/26/22 09:51 114 H 99 08/26/22 09:49 117 H 118/60 08/26/22 09:46 124 H 100 08/26/22 09:44 122 H 159/77 H 08/26/22 09:41 120 H 98 08/26/22 09:39 117 H 142/73 H 08/26/22 09:36 115 H 98 08/26/22 09:34 116 H 129/68 08/26/22 09:31 112 H 99 08/26/22 09:30 113 H 133/70 08/26/22 09:26 115 H 98 08/26/22 09:24 110 H 125/71 08/26/22 09:21 109 H 99 08/26/22 09:19 107 H 128/70 08/26/22 09:16 103 H 99 08/26/22 09:14 107 H 125/70 08/26/22 09:11 112 H 97 08/26/22 08:30 18 08/26/22 08:30 18 08/26/22 09:10 112 H 121/68 08/26/22 09:06 110 H 97 08/26/22 09:04 108 H 124/67 08/26/22 09:01 118 H 98 08/26/22 08:59 109 H 128/70 08/26/22 08:56 119 H 99 08/26/22 08:54 126 H 121/69 08/26/22 08:51 128 H 99 08/26/22 08:49 125 H 132/78 08/26/22 08:46 125 H 98 08/26/22 08:44 133 H 125/69 08/26/22 08:41 122 H 99 08/26/22 08:39 122 H 128/77 08/26/22 08:36 136 H 98 08/26/22 08:34 129 H 127/74 08/26/22 08:31 127 H 123/76 98 08/26/22 08:26 119 H 97 08/26/22 08:25 112 H 137/77 08/26/22 08:21 112 H 98 08/26/22 08:19 120 H 139/82 08/26/22 08:07 37.2 C 08/26/22 07:05 18 08/26/22 07:05 37.5 C 18 08/26/22 08:16 132 H 98 08/26/22 08:15 118 H 132/80 08/26/22 08:11 137 H 99 08/26/22 08:09 136 H 127/76 08/26/22 08:06 130 H 99 08/26/22 08:04 142 H 120/67 08/26/22 08:01 151 H 98 08/26/22 07:56 155 H 95 08/26/22 07:55 114 H 157/79 H 08/26/22 07:51 122 H 98 08/26/22 07:50 118 H 104/58 L 08/26/22 07:46 120 H 108/59 L 97 08/26/22 07:41 128 H 96 08/26/22 07:40 130 H 127/75 08/26/22 07:36 148 H 97 08/26/22 07:35 141 H 120/67 08/26/22 07:31 121 H 96 08/26/22 07:30 141 H 119/56 L 08/26/22 07:26 129 H 97 08/26/22 07:25 121 H 121/59 L 08/26/22 07:21 116 H 96 08/26/22 07:20 116 H 109/58 L 08/26/22 07:16 120 H 95 08/26/22 07:15 113 H 110/56 L 08/26/22 07:11 95 08/26/22 07:11 125 H 08/26/22 07:11 118 H 113/53 L 08/26/22 07:06 121 H 95 08/26/22 07:04 123 H 117/53 L 08/26/22 07:01 117 H 95 08/26/22 07:00 120 H 107/52 L 08/26/22 06:56 120 H 95 08/26/22 06:54 123 H 104/54 L 08/26/22 06:51 113 H 111/51 L 96 08/26/22 06:46 114 H 96 08/26/22 06:45 121 H 107/52 L 08/26/22 06:41 122 H 96 08/26/22 06:39 112 H 106/51 L 08/26/22 06:36 97 08/26/22 06:36 119 H 08/26/22 06:36 117 H 105/55 L 08/26/22 06:31 117 H 97 08/26/22 06:29 118 H 110/55 L 08/26/22 06:26 110 H 97 08/26/22 06:25 114 H 110/51 L 08/26/22 06:21 108 H 103/54 L 97 08/26/22 06:16 116 H 100 08/26/22 06:14 36.6 C 117 H 16 126/89 08/26/22 06:11 143 H 99 08/26/22 06:06 120 H 99 08/26/22 06:01 125 H 97 08/26/22 05:56 132 H 99 08/26/22 05:54 137 H 136/94 08/26/22 05:51 141 H 97 08/26/22 05:46 128 H 100 08/26/22 05:41 133 H 95 08/26/22 05:36 128 H 100 08/26/22 05:31 139 H 100 08/26/22 05:26 132 H 99 08/26/22 05:24 130 H 134/79 08/26/22 05:21 128 H 98 08/26/22 05:16 130 H 99 08/26/22 05:11 128 H 96 08/26/22 05:08 127 H 121/58 L 08/26/22 05:06 127 H 100 08/26/22 05:01 126 H 98 08/26/22 04:56 134 H 99 08/26/22 04:53 120 H 132/65 08/26/22 04:51 119 H 98 08/26/22 04:46 126 H 99 08/26/22 04:41 120 H 98 08/26/22 04:39 120 H 129/67 08/26/22 04:36 118 H 98 08/26/22 04:31 125 H 97 08/26/22 04:26 123 H 98 08/26/22 04:24 37.0 C 123 H 16 118/67 08/26/22 04:21 122 H 95 08/26/22 04:18 124 H 94 08/26/22 04:16 116 H 95 08/26/22 04:11 115 H 100 08/26/22 04:06 136 H 99 08/26/22 04:03 121 H 123/71 08/26/22 04:01 124 H 97 08/26/22 03:59 105 H 135/75 08/26/22 03:56 122 H 97 08/26/22 03:53 107 H 128/67 08/26/22 03:51 116 H 97 08/26/22 03:48 112 H 130/71 08/26/22 03:46 118 H 98 08/26/22 03:43 114 H 128/72 08/26/22 03:41 113 H 97 08/26/22 03:38 117 H 122/66 08/26/22 03:36 116 H 97 08/26/22 03:33 113 H 127/69 08/26/22 03:31 115 H 96 08/26/22 03:28 115 H 116/53 L 08/26/22 03:26 110 H 96 08/26/22 03:23 112 H 108/51 L 08/26/22 03:21 113 H 96 08/26/22 03:19 109 H 112/57 L 08/26/22 03:16 119 H 96 08/26/22 03:14 109 H 111/54 L 08/26/22 03:11 109 H 96 08/26/22 03:09 111 H 109/54 L 08/26/22 03:06 111 H 96 08/26/22 03:03 123 H 120/55 L 08/26/22 03:01 121 H 97 08/26/22 02:56 101 H 97 08/26/22 02:55 122 H 127/76 08/26/22 02:53 103 H 121/70 08/26/22 02:51 108 H 96 08/26/22 02:50 113 H 129/76 08/26/22 02:46 116 H 95 08/26/22 02:41 128 H 97 08/26/22 02:37 121 H 127/72 08/26/22 02:36 118 H 97 08/26/22 02:31 124 H 100 08/26/22 02:26 116 H 100 08/26/22 02:21 123 H 100 08/26/22 02:22 117 H 120/67 08/26/22 02:18 122 H 92 08/26/22 02:16 128 H 98 08/26/22 02:11 119 H 96 08/26/22 02:08 36.8 C 107 H 18 126/65 08/26/22 02:06 110 H 97 08/26/22 02:01 117 H 97 08/26/22 01:56 115 H 100 08/26/22 01:54 116 H 115/57 L 08/26/22 01:51 111 H 100 08/26/22 01:46 115 H 100 08/26/22 01:41 118 H 99 08/26/22 01:37 120 H 121/57 L 08/26/22 01:36 126 H 98 08/26/22 01:31 132 H 99 08/26/22 01:26 125 H 96 08/26/22 01:21 121 H 98 08/26/22 01:22 120 H 140/78 08/26/22 01:16 130 H 100 08/26/22 01:11 124 H 98 08/26/22 01:09 127 H 131/75 08/26/22 01:06 115 H 98 08/26/22 01:01 118 H 97 08/26/22 00:56 120 H 98 08/26/22 00:51 120 H 100 08/26/22 00:46 118 H 98 08/26/22 00:41 111 H 100 08/26/22 00:39 36.9 C 112 H 16 138/96 08/26/22 00:36 105 H 98 08/26/22 00:31 127 H 99 08/26/22 00:26 102 H 100 08/26/22 00:22 111 H 124/57 L 08/26/22 00:21 108 H 98 08/26/22 00:16 115 H 98 08/26/22 00:11 113 H 99 08/26/22 00:07 134 H 132/57 L 08/26/22 00:06 129 H 99 08/26/22 00:01 121 H 98 08/25/22 23:56 122 H 98 08/25/22 23:51 139 H 98 08/25/22 23:46 133 H 99 08/25/22 23:41 124 H 97 08/25/22 23:36 126 H 99 08/25/22 23:37 127 H 127/66 08/25/22 23:31 126 H 96 08/25/22 23:26 117 H 96 08/25/22 23:22 123 H 123/61 08/25/22 23:21 118 H 96 08/25/22 23:16 120 H 96 08/25/22 23:11 117 H 97 Coding Level of Care Code None Diagnoses Encounter for induction of labor Z34.90 Polyhydramnios affecting O40.9XX0 Gestational diabetes mellitus (GDM) affecting , antepartum O24.419
--- NOTE | 2022-08-26 11:24 | Labor Progress Brief Note ---
Date of Service August 26, 2022 Subjective Update of recent events. I went down to 1st floor to complete a scheduled minor surgery. Prior to scrubbing for that surgery, I was called out of the first floor OR to return to 4th floor L&D to deliver an unrelated patient who arrived completely dilated and precipitously delivering. During that other delivery, Cass resumed feeling extreme pain and was requesting 4th bolus dose. She was then checked by two L&D nurses including Trina and Breanne who both felt the patient was anterior lip. After completing my other delivery, I went to [facility] to reassess the patient prior to see if she was approaching delivery. This would affect whether I should return to OR on 1st floor at that time or not. On my exam I felt a swollen anterior lip, but also cervix circumferentially present around the urexj-xire-jusvtg head, with [id number]-ppyn-cxonocqixsz caput, as had been present this morning on my prior exam. I told the patient and Trina in the room that I couldn't agree with the exam of anterior lip dilation, and that in fact I didn't feel there had been change from the exam I did earlier today. Dr. Dobbins was still not present at the room so I assured the patient we would have him come LUZ MARIA, and told her I would also ask my partner Dr. Bahena to come over from the office to examine her, as we were having difficulty assessing her cervix accurately. I voiced that several very experienced examiners were getting different results, and reiterated as I'd said that morning that it was a particularly difficult exam. I called Dr. Bahena from the nursing station where both Trina and Breanne were present. I explained that there had been disagreement both between the overnight nurses and Dr. Cuellar, as well as between Trina/Breanne and myself, and that I was requesting that she come and examine the patient. If progress to anterior lip had actually occurred, we should likely continue IOL; but if no change had occurred and patient was having severe pelvic pain once more, a discussion about moving to section was likely to be next. The importance of this exam was high, and I wanted an additional physician's examination to make sure the patient was getting correct care. Dr. Bahena examined the patient while I waited at the nursing station. In a few minutes she came out and said that she felt cervix all the way around, a swollen anterior lip, and that she would vault manager the exam to be 8cm. She said she had counseled the patient that she did not feel the baby was likely to deliver vaginally due to the significant molding, caput, pelvic bone pain, and swelling of anterior lip. Dr. Dobbins then arrived and administered a fourth bolus which did help the patient become more comfortable. Trina returned to the room during that and continued to provide comfort to the patient. I returned to the room and once the patient was able to be relaxed and participate in discussion, we discussed that the status is reassuring and there is no emergency, and no need to change plans at this time. There has certainly been lack of clarity about whether cervical progress occurred, and it would be absolutely OK to continue IOL to allow further assessment; if progress is happening, we should see it continue to do so. However, it is also possible that further efforts may still end up resulting in . She is able to elect either to continue or to change to at this time, and that choice is entirely up to her. The patient voiced that she is very tired of the pain, very tired of the waiting, and would like to move on to . The FOB is in agreement with this as well. Dr. Bahena returned to the room and asked if they would like to discuss with her, or if they had questions for her before she returned to the office. They did not. FOB voiced that although he understands we can't predict the future, he sees that Dr. Cuellar, myself, and Dr. Bahena have all counseled them the same - that we don't expect the baby to deliver vaginally. The patient feels she has tried as hard as she is able, and does not want to tolerate further pain or waiting. She asked good questions about surgical risk and recovery which were answered, the couple were given several minutes alone to discuss their decision, and after the FOB approached us at the nursing station to say they were sure they wanted to proceed, Trina and Jasen returned to the room and consent process was completed. Dr. Dobbins is still on L&D and aware we will move directly to . Assessment & Plan Admission and Anticipated Discharge Date Admission Date: August 25, 2022 Results & Data ([facility]) Vital Signs (Past 12 Hours) Vital Signs Temp Pulse Resp BP Pulse Ox 08/26/22 07:05 99.5 F 18 08/26/22 11:16 154 H 99 08/26/22 11:11 98 08/26/22 11:11 118 H 08/26/22 11:11 133 H 89 L 08/26/22 11:09 118 H 132/70 08/26/22 11:06 120 H 100 08/26/22 11:04 126 H 149/89 H 08/26/22 11:03 124 H 92 08/26/22 11:01 116 H 99 08/26/22 10:56 122 H 99 08/26/22 10:54 113 H 140/90 08/26/22 10:51 113 H 100 08/26/22 10:50 117 H 152/99 H 08/26/22 10:46 112 H 100 08/26/22 10:45 150 H 140/91 08/26/22 10:41 125 H 96 08/26/22 10:40 123 H 134/96 08/26/22 10:36 112 H 97 08/26/22 10:34 126 H 135/83 08/26/22 10:31 117 H 98 08/26/22 10:29 117 H 136/84 08/26/22 10:26 130 H 99 08/26/22 10:24 122 H 141/87 H 08/26/22 10:21 117 H 99 08/26/22 10:20 120 H 141/77 H 08/26/22 10:16 126 H 99 08/26/22 10:15 115 H 127/63 08/26/22 10:11 109 H 98 08/26/22 10:10 113 H 130/71 08/26/22 10:06 112 H 98 08/26/22 10:05 112 H 117/60 08/26/22 10:01 111 H 98 08/26/22 09:59 105 H 117/60 08/26/22 09:56 106 H 98 08/26/22 09:54 116 H 110/55 L 08/26/22 09:51 114 H 99 08/26/22 09:49 117 H 118/60 08/26/22 09:46 124 H 100 08/26/22 09:44 122 H 159/77 H 08/26/22 09:41 120 H 98 08/26/22 09:39 117 H 142/73 H 08/26/22 09:36 115 H 98 08/26/22 09:34 116 H 129/68 08/26/22 09:31 112 H 99 08/26/22 09:30 113 H 133/70 08/26/22 09:26 115 H 98 08/26/22 09:24 110 H 125/71 08/26/22 09:21 109 H 99 08/26/22 09:19 107 H 128/70 08/26/22 09:16 103 H 99 08/26/22 09:14 107 H 125/70 08/26/22 09:11 112 H 97 08/26/22 08:30 18 08/26/22 08:30 18 08/26/22 09:10 112 H 121/68 08/26/22 09:06 110 H 97 08/26/22 09:04 108 H 124/67 08/26/22 09:01 118 H 98 08/26/22 08:59 109 H 128/70 08/26/22 08:56 119 H 99 08/26/22 08:54 126 H 121/69 08/26/22 08:51 128 H 99 08/26/22 08:49 125 H 132/78 08/26/22 08:46 125 H 98 08/26/22 08:44 133 H 125/69 08/26/22 08:41 122 H 99 08/26/22 08:39 122 H 128/77 08/26/22 08:36 136 H 98 08/26/22 08:34 129 H 127/74 08/26/22 08:31 127 H 123/76 98 08/26/22 08:26 119 H 97 08/26/22 08:25 112 H 137/77 08/26/22 08:21 112 H 98 08/26/22 08:19 120 H 139/82 08/26/22 08:07 99.0 F 08/26/22 07:05 18 08/26/22 07:05 99.5 F 18 08/26/22 08:16 132 H 98 08/26/22 08:15 118 H 132/80 08/26/22 08:11 137 H 99 08/26/22 08:09 136 H 127/76 08/26/22 08:06 130 H 99 08/26/22 08:04 142 H 120/67 08/26/22 08:01 151 H 98 08/26/22 07:56 155 H 95 08/26/22 07:55 114 H 157/79 H 08/26/22 07:51 122 H 98 08/26/22 07:50 118 H 104/58 L 08/26/22 07:46 120 H 108/59 L 97 08/26/22 07:41 128 H 96 08/26/22 07:40 130 H 127/75 08/26/22 07:36 148 H 97 08/26/22 07:35 141 H 120/67 08/26/22 07:31 121 H 96 08/26/22 07:30 141 H 119/56 L 08/26/22 07:26 129 H 97 08/26/22 07:25 121 H 121/59 L 08/26/22 07:21 116 H 96 08/26/22 07:20 116 H 109/58 L 08/26/22 07:16 120 H 95 08/26/22 07:15 113 H 110/56 L 08/26/22 07:11 95 08/26/22 07:11 125 H 08/26/22 07:11 118 H 113/53 L 08/26/22 07:06 121 H 95 08/26/22 07:04 123 H 117/53 L 08/26/22 07:01 117 H 95 08/26/22 07:00 120 H 107/52 L 08/26/22 06:56 120 H 95 08/26/22 06:54 123 H 104/54 L 08/26/22 06:51 113 H 111/51 L 96 08/26/22 06:46 114 H 96 08/26/22 06:45 121 H 107/52 L 08/26/22 06:41 122 H 96 08/26/22 06:39 112 H 106/51 L 08/26/22 06:36 97 08/26/22 06:36 119 H 08/26/22 06:36 117 H 105/55 L 08/26/22 06:31 117 H 97 08/26/22 06:29 118 H 110/55 L 08/26/22 06:26 110 H 97 08/26/22 06:25 114 H 110/51 L 08/26/22 06:21 108 H 103/54 L 97 08/26/22 06:16 116 H 100 08/26/22 06:14 97.9 F 117 H 16 126/89 08/26/22 06:11 143 H 99 08/26/22 06:06 120 H 99 08/26/22 06:01 125 H 97 08/26/22 05:56 132 H 99 08/26/22 05:54 137 H 136/94 08/26/22 05:51 141 H 97 08/26/22 05:46 128 H 100 08/26/22 05:41 133 H 95 08/26/22 05:36 128 H 100 08/26/22 05:31 139 H 100 08/26/22 05:26 132 H 99 08/26/22 05:24 130 H 134/79 08/26/22 05:21 128 H 98 08/26/22 05:16 130 H 99 08/26/22 05:11 128 H 96 08/26/22 05:08 127 H 121/58 L 08/26/22 05:06 127 H 100 08/26/22 05:01 126 H 98 08/26/22 04:56 134 H 99 08/26/22 04:53 120 H 132/65 08/26/22 04:51 119 H 98 08/26/22 04:46 126 H 99 08/26/22 04:41 120 H 98 08/26/22 04:39 120 H 129/67 08/26/22 04:36 118 H 98 08/26/22 04:31 125 H 97 08/26/22 04:26 123 H 98 08/26/22 04:24 98.6 F 123 H 16 118/67 08/26/22 04:21 122 H 95 08/26/22 04:18 124 H 94 08/26/22 04:16 116 H 95 08/26/22 04:11 115 H 100 08/26/22 04:06 136 H 99 08/26/22 04:03 121 H 123/71 08/26/22 04:01 124 H 97 08/26/22 03:59 105 H 135/75 08/26/22 03:56 122 H 97 08/26/22 03:53 107 H 128/67 08/26/22 03:51 116 H 97 08/26/22 03:48 112 H 130/71 08/26/22 03:46 118 H 98 08/26/22 03:43 114 H 128/72 08/26/22 03:41 113 H 97 08/26/22 03:38 117 H 122/66 08/26/22 03:36 116 H 97 08/26/22 03:33 113 H 127/69 08/26/22 03:31 115 H 96 08/26/22 03:28 115 H 116/53 L 08/26/22 03:26 110 H 96 08/26/22 03:23 112 H 108/51 L 08/26/22 03:21 113 H 96 08/26/22 03:19 109 H 112/57 L 08/26/22 03:16 119 H 96 08/26/22 03:14 109 H 111/54 L 08/26/22 03:11 109 H 96 08/26/22 03:09 111 H 109/54 L 08/26/22 03:06 111 H 96 08/26/22 03:03 123 H 120/55 L 08/26/22 03:01 121 H 97 08/26/22 02:56 101 H 97 08/26/22 02:55 122 H 127/76 08/26/22 02:53 103 H 121/70 08/26/22 02:51 108 H 96 08/26/22 02:50 113 H 129/76 08/26/22 02:46 116 H 95 08/26/22 02:41 128 H 97 08/26/22 02:37 121 H 127/72 08/26/22 02:36 118 H 97 08/26/22 02:31 124 H 100 08/26/22 02:26 116 H 100 08/26/22 02:21 123 H 100 08/26/22 02:22 117 H 120/67 08/26/22 02:18 122 H 92 08/26/22 02:16 128 H 98 08/26/22 02:11 119 H 96 08/26/22 02:08 98.2 F 107 H 18 126/65 08/26/22 02:06 110 H 97 08/26/22 02:01 117 H 97 08/26/22 01:56 115 H 100 08/26/22 01:54 116 H 115/57 L 08/26/22 01:51 111 H 100 08/26/22 01:46 115 H 100 08/26/22 01:41 118 H 99 08/26/22 01:37 120 H 121/57 L 08/26/22 01:36 126 H 98 08/26/22 01:31 132 H 99 08/26/22 01:26 125 H 96 08/26/22 01:21 121 H 98 08/26/22 01:22 120 H 140/78 08/26/22 01:16 130 H 100 08/26/22 01:11 124 H 98 08/26/22 01:09 127 H 131/75 08/26/22 01:06 115 H 98 08/26/22 01:01 118 H 97 08/26/22 00:56 120 H 98 08/26/22 00:51 120 H 100 08/26/22 00:46 118 H 98 08/26/22 00:41 111 H 100 08/26/22 00:39 98.4 F 112 H 16 138/96 08/26/22 00:36 105 H 98 08/26/22 00:31 127 H 99 08/26/22 00:26 102 H 100 08/26/22 00:22 111 H 124/57 L 08/26/22 00:21 108 H 98 08/26/22 00:16 115 H 98 08/26/22 00:11 113 H 99 08/26/22 00:07 134 H 132/57 L 08/26/22 00:06 129 H 99 08/26/22 00:01 121 H 98 08/25/22 23:56 122 H 98 08/25/22 23:51 139 H 98 08/25/22 23:46 133 H 99 08/25/22 23:41 124 H 97 08/25/22 23:36 126 H 99 08/25/22 23:37 127 H 127/66 08/25/22 23:31 126 H 96 08/25/22 23:26 117 H 96 08/25/22 23:22 123 H 123/61 08/25/22 23:21 118 H 96 Coding Level of Care Code None
[2022-08-26] MEDS ORDERED: MoRPHine SULFATE PF 1 MG/ML 10 ML AMP/VIAL ONE (11:33)
[2022-08-26] MEDS ORDERED: OXYTOCIN 10 UNITS/ML 10ML VIAL ONE (11:46)
[2022-08-26] MEDS ORDERED: LIDOCAINE 2% MPF LOCAL 5 ML VIAL INFIL ONE (11:46)
[2022-08-26] MEDS ORDERED: METOCLOPRAMIDE HCL INJ 5 MG/ML 2 ML VIAL ONE (11:46)
[2022-08-26] MEDS ORDERED: ONDANSETRON INJ 2 MG/ML 2 ML VIAL ONE (11:46)
[2022-08-26] MEDS ORDERED: PROPOFOL IV EMULSION 10 MG/ML 20 ML VIAL IV ONE (11:46)
[2022-08-26] MEDS ORDERED: CITRIC ACID/SODIUM CITRATE 15 ML UDC PO ONE (12:00)
[2022-08-26] MEDS ORDERED: MEPERIDINE HCL 25 MG/ML CARP/VIAL ONE (12:32)
[2022-08-26] MEDS ORDERED: diphenhydrAMINE 50 MG/ML VIAL IV PRN (12:39)
[2022-08-26] MEDS ORDERED: NALBUPHINE HCL INJ 10 MG/ML AMP IV PRN (12:39)
[2022-08-26] MEDS ORDERED: NALOXONE HCL 0.4 MG/1 ML VIAL/CARP IV PRN (12:39)
[2022-08-26] MEDS ORDERED: NALOXONE HCL 1 MG in SODIUM CHLORIDE 0.9% 1000ML 1,000 ML IV PRN (12:39)
[2022-08-26] MEDS ORDERED: LACTATED RINGER'S 500 ML IV PRN (12:39)
[2022-08-26] MEDS ORDERED: MoRPHine SULFATE 2 MG/ML CARP IV PRN (12:39)
[2022-08-26] MEDS ORDERED: PROMETHAZINE HCL 12.5 MG in SODIUM CHLORIDE 0.9% 50 ML IV PRN (12:39)
[2022-08-26] MEDS ORDERED: MoRPHine SULFATE PF 1 MG/ML 10 ML AMP/VIAL INT SPINAL ONE (12:39)
[2022-08-26] MEDS ORDERED: ePHEDrine sulfate 50 MG/ML AMP IV PRN (12:39)
[2022-08-26] MEDS ORDERED: ONDANSETRON INJ 2 MG/ML 2 ML VIAL IV PRN (12:39)
[2022-08-26] MEDS ORDERED: NALOXONE HCL 0.08 MG in SYRINGE 1.8 ML IV PRN (12:39)
[2022-08-26] MEDS ORDERED: PHENYLEPHRINE 100MCG/ML 5ML SYR ONE (12:40)
[2022-08-26] MEDS ORDERED: DC INTRASPINAL MORPHINE SCH (12:45)
[2022-08-26] MEDS ORDERED: NO NARCOTICS OR SEDATIVES SCH (12:45)
[2022-08-26] MEDS ORDERED: SODIUM CHLORIDE 0.9% 1000ML 1,000 ML IV SCH (12:45)
--- NOTE | 2022-08-26 13:03 | Anesthesia Procedure Note ---
Date of Service August 26, 2022 Anesthesia Post Epidural Note Vital Signs Vital Signs: Temp Pulse Resp BP Pulse Ox 37.2 C 117 H 18 141/84 H 99 08/26/22 08:07 08/26/22 12:04 08/26/22 08:30 08/26/22 12:04 08/26/22 12:01 Pain Intensity Abdomen: Pain Intensity: 0 Notes Mental Status: alert / awake / arousable and participated in evaluation Nausea / Vomiting: adequately controlled Pain: adequately controlled Airway Patency, RR, SpO2: stable & adequate BP & HR: stable & adequate Hydration State: stable & adequate Neuraxial Anesthesia: was administered and sensory block is resolving Anesthetic Complications: no major complications apparent Epidural: Removed without complications and With tip intact
--- NOTE | 2022-08-26 13:04 | Operative Report ---
PG Post Operative Report Pre & Post Diagnosis Operation Date: 08/26/22 12:00 Pre-Op Diagnosis: Failure to Progress; Expected Cephalopelvic Disproportion Post-Op Diagnosis: Same; Delivery of a live male child at 1223 I identified the patient and participated in the time-out.: Yes Procedure Operation Date: 08/26/22 12:00 Actual Procedures Low Transverse Section Surgeon Alessandra Naqvi MD Spray Worker Tamar Gomez RN, Stacy Wren PGY1 Estimated Blood Loss 600 Findings Consistent with Post-Op Diagnosis Specimens Cord blood, Placenta Anesthesia Type L&D Only Epidural Exists Complications none Disposition Accompanied Patient To Recovery: Yes Disposition: L&D Description of Procedure The patient was placed operating table in the supine position with a leftward tilt. She was prepped and draped in standard sterile fashion. The anesthetic was tested and found to be adequate. A time-out was held, identifying correct patient, procedure, positioning and preoperative antibiotics. There were no concerns. A Pfannenstiel skin incision was made with a knife and taken down to the underlying layer of fascia. The fascia was incised in the midline with the knife and taken out laterally with scissors. The superior edge of the fascial incision was grasped, elevated and dissected off the underlying rectus both superiorly and inferiorly. The muscles were bluntly in the midline. The peritoneum was entered bluntly. The incision was then stretched. The bladder retractor was placed. The vesicouterine peritoneum was identified, entered with scissors and taken out laterally with scissors. The bladder flap was created digitally. A hysterotomy incision was created transversely in the lower uterine segment, final entry being accomplished in a blunt manner with the drum saw operator's fingers. Thick meconium amniotic fluid was encountered, which was noted by both Tamar and myself to be new, and had not been observed even at the time we transferred the patient to the OR bed; when we removed the chux beneath her at that time they were soaked with clear amniotic fluid. The drum saw operator's hand was used to elevate the head to the hysterotomy. The head was delivered using mild fundal pressure, and the shoulders and body followed without difficulty. There was 1x loop of loose nuchal cord. The cord was clamped and cut and the was then handed off to the awaiting online marketing strategist. Cord blood was obtained. The placenta was Manually extracted. The uterus was exteriorized and cleared of all clot and debris with moistened laparotomy sponges. The hysterotomy incision was repaired in two layers, the first in a running locked layer, the second in an imbricating layer. The ovaries and tubes were seen to be normal bilaterally. The uterus was gently replaced in the abdomen, and the gutters were cleared of clot and debris. A final inspection of the hysterotomy revealed good hemostasis. The rectus muscles were allowed to reapproximate naturally. The fascia was then reapproximated with 1 Vicryl in a running nonlocked manner. The fascia was examined and found to be free of defect following closure. The subcutaneous tissue was copiously irrigated and reapproximated with 0-chromic, then the skin edges were closed with 4-0 monocryl in a subcuticular fashion. A dermabond dressing was applied. The kent was found to be draining clear yellow urine at completion of the procedure. I attest to the content of the Intraoperative Record and any orders documented therein. Any exceptions are noted below. I attest to the content of the Intraoperative Record and any orders documented therein. Any exceptions are noted below. OB Procedure Charges 62853
[2022-08-26] MEDS ORDERED: HYDROCORTISONE ACETATE 25 MG SUPP PR PRN (13:09)
[2022-08-26] MEDS ORDERED: BENZOCAINE 20% AER SPR 82.5 GM CAN EXT PRN (13:09)
[2022-08-26] MEDS ORDERED: DIPHTHERIA/TETANUS/PERTUSSIS 0.5 ML SYR/VIAL IM ONE (13:09)
[2022-08-26] MEDS ORDERED: SENNA 8.6 MG TAB PO PRN (13:09)
[2022-08-26] MEDS ORDERED: MAGNESIUM HYDROXIDE SUSP 30 ML UDC PO PRN (13:09)
[2022-08-26] MEDS ORDERED: OXYTOCIN 30 UNITS in LACTATED RINGER'S 1,000 ML IV SCH (13:30)
[2022-08-26] MEDS: KETOROLAC 30 MG/ML VIAL IV PRN (13:53)
--- NOTE | 2022-08-26 15:10 | Anesthesiology Progress Note ---
Date of Service August 26, 2022 Anesthesia Post Procedure Vital Signs Vital Signs: Temp Pulse Resp BP Pulse Ox 08/26/22 14:10 18 08/26/22 14:00 18 08/26/22 13:50 18 08/26/22 13:40 18 08/26/22 13:30 16 08/26/22 13:20 18 08/26/22 13:10 37.3 C 18 08/26/22 07:05 37.5 C 18 08/25/22 18:00 18 08/26/22 15:06 122 H 135/63 08/26/22 15:04 136 H 100 08/26/22 14:59 123 H 97 08/26/22 14:56 121 H 128/60 08/26/22 14:54 121 H 98 08/26/22 14:49 121 H 99 08/26/22 14:47 125 H 126/66 08/26/22 14:44 121 H 97 08/26/22 14:39 117 H 97 08/26/22 14:36 121 H 128/60 08/26/22 14:34 125 H 98 08/26/22 14:29 127 H 97 08/26/22 14:26 120 H 126/58 L 08/26/22 14:24 127 H 96 08/26/22 14:19 130 H 97 08/26/22 14:17 129 H 131/62 08/26/22 14:14 128 H 96 08/26/22 14:09 131 H 95 08/26/22 14:06 137 H 138/71 08/26/22 14:04 123 H 96 08/26/22 13:59 124 H 96 08/26/22 13:56 131 H 141/66 H 08/26/22 13:54 134 H 97 08/26/22 13:49 129 H 98 08/26/22 13:46 130 H 135/68 08/26/22 13:44 134 H 98 08/26/22 13:39 128 H 98 08/26/22 13:36 126 H 138/67 08/26/22 13:34 128 H 99 08/26/22 13:29 120 H 98 08/26/22 13:26 114 H 128/59 L 08/26/22 13:24 119 H 98 08/26/22 13:19 120 H 98 08/26/22 13:17 127 H 134/60 08/26/22 13:14 128 H 100 08/26/22 13:09 134 H 100 08/26/22 13:06 127 H 126/95 08/26/22 13:04 134 H 100 08/26/22 12:04 117 H 141/84 H 08/26/22 12:01 119 H 99 08/26/22 11:59 126 H 137/82 08/26/22 11:56 126 H 99 08/26/22 11:54 129 H 142/82 H 08/26/22 11:51 127 H 98 08/26/22 11:49 133 H 140/79 08/26/22 11:46 122 H 99 08/26/22 11:44 120 H 148/79 H 08/26/22 11:41 128 H 100 08/26/22 11:39 123 H 143/91 H 08/26/22 11:36 125 H 100 08/26/22 11:35 134 H 142/86 H 08/26/22 11:31 127 H 100 08/26/22 11:29 131 H 135/82 90 08/26/22 11:26 126 H 140/88 99 08/26/22 11:21 121 H 99 08/26/22 11:20 131 H 130/94 08/26/22 11:16 154 H 99 08/26/22 11:11 98 08/26/22 11:11 118 H 08/26/22 11:11 133 H 89 L 08/26/22 11:09 118 H 132/70 08/26/22 11:06 120 H 100 08/26/22 11:04 126 H 149/89 H 08/26/22 11:03 124 H 92 08/26/22 11:01 116 H 99 08/26/22 10:56 122 H 99 08/26/22 10:54 113 H 140/90 08/26/22 10:51 113 H 100 08/26/22 10:50 117 H 152/99 H 08/26/22 10:46 112 H 100 08/26/22 10:45 150 H 140/91 08/26/22 10:41 125 H 96 08/26/22 10:40 123 H 134/96 08/26/22 10:36 112 H 97 08/26/22 10:34 126 H 135/83 08/26/22 10:31 117 H 98 08/26/22 10:29 117 H 136/84 08/26/22 10:26 130 H 99 08/26/22 10:24 122 H 141/87 H 08/26/22 10:21 117 H 99 08/26/22 10:20 120 H 141/77 H 08/26/22 10:16 126 H 99 08/26/22 10:15 115 H 127/63 08/26/22 10:11 109 H 98 08/26/22 10:10 113 H 130/71 08/26/22 10:06 112 H 98 08/26/22 10:05 112 H 117/60 08/26/22 10:01 111 H 98 08/26/22 09:59 105 H 117/60 08/26/22 09:56 106 H 98 08/26/22 09:54 116 H 110/55 L 08/26/22 09:51 114 H 99 08/26/22 09:49 117 H 118/60 08/26/22 09:46 124 H 100 08/26/22 09:44 122 H 159/77 H 08/26/22 09:41 120 H 98 08/26/22 09:39 117 H 142/73 H 08/26/22 09:36 115 H 98 08/26/22 09:34 116 H 129/68 08/26/22 09:31 112 H 99 08/26/22 09:30 113 H 133/70 08/26/22 09:26 115 H 98 08/26/22 09:24 110 H 125/71 08/26/22 09:21 109 H 99 08/26/22 09:19 107 H 128/70 08/26/22 09:16 103 H 99 08/26/22 09:14 107 H 125/70 08/26/22 09:11 112 H 97 08/26/22 08:30 18 08/26/22 08:30 18 08/26/22 09:10 112 H 121/68 08/26/22 09:06 110 H 97 08/26/22 09:04 108 H 124/67 08/26/22 09:01 118 H 98 08/26/22 08:59 109 H 128/70 08/26/22 08:56 119 H 99 08/26/22 08:54 126 H 121/69 08/26/22 08:51 128 H 99 08/26/22 08:49 125 H 132/78 08/26/22 08:46 125 H 98 08/26/22 08:44 133 H 125/69 08/26/22 08:41 122 H 99 08/26/22 08:39 122 H 128/77 08/26/22 08:36 136 H 98 08/26/22 08:34 129 H 127/74 08/26/22 08:31 127 H 123/76 98 08/26/22 08:26 119 H 97 08/26/22 08:25 112 H 137/77 08/26/22 08:21 112 H 98 08/26/22 08:19 120 H 139/82 08/26/22 08:07 37.2 C 08/26/22 07:05 18 08/26/22 07:05 37.5 C 18 08/26/22 08:16 132 H 98 08/26/22 08:15 118 H 132/80 08/26/22 08:11 137 H 99 08/26/22 08:09 136 H 127/76 08/26/22 08:06 130 H 99 08/26/22 08:04 142 H 120/67 08/26/22 08:01 151 H 98 08/26/22 07:56 155 H 95 08/26/22 07:55 114 H 157/79 H 08/26/22 07:51 122 H 98 08/26/22 07:50 118 H 104/58 L 08/26/22 07:46 120 H 108/59 L 97 08/26/22 07:41 128 H 96 08/26/22 07:40 130 H 127/75 08/26/22 07:36 148 H 97 08/26/22 07:35 141 H 120/67 08/26/22 07:31 121 H 96 08/26/22 07:30 141 H 119/56 L 08/26/22 07:26 129 H 97 08/26/22 07:25 121 H 121/59 L 08/26/22 07:21 116 H 96 08/26/22 07:20 116 H 109/58 L 08/26/22 07:16 120 H 95 08/26/22 07:15 113 H 110/56 L 08/26/22 07:11 95 08/26/22 07:11 125 H 08/26/22 07:11 118 H 113/53 L 08/26/22 07:06 121 H 95 08/26/22 07:04 123 H 117/53 L 08/26/22 07:01 117 H 95 08/26/22 07:00 120 H 107/52 L 08/26/22 06:56 120 H 95 08/26/22 06:54 123 H 104/54 L 08/26/22 06:51 113 H 111/51 L 96 08/26/22 06:46 114 H 96 08/26/22 06:45 121 H 107/52 L 08/26/22 06:41 122 H 96 08/26/22 06:39 112 H 106/51 L 08/26/22 06:36 97 08/26/22 06:36 119 H 08/26/22 06:36 117 H 105/55 L 08/26/22 06:31 117 H 97 08/26/22 06:29 118 H 110/55 L 08/26/22 06:26 110 H 97 08/26/22 06:25 114 H 110/51 L 08/26/22 06:21 108 H 103/54 L 97 08/26/22 06:16 116 H 100 08/26/22 06:14 36.6 C 117 H 16 126/89 08/26/22 06:11 143 H 99 08/26/22 06:06 120 H 99 08/26/22 06:01 125 H 97 08/26/22 05:56 132 H 99 08/26/22 05:54 137 H 136/94 08/26/22 05:51 141 H 97 08/26/22 05:46 128 H 100 08/26/22 05:41 133 H 95 08/26/22 05:36 128 H 100 08/26/22 05:31 139 H 100 08/26/22 05:26 132 H 99 08/26/22 05:24 130 H 134/79 08/26/22 05:21 128 H 98 08/26/22 05:16 130 H 99 08/26/22 05:11 128 H 96 08/26/22 05:08 127 H 121/58 L 08/26/22 05:06 127 H 100 08/26/22 05:01 126 H 98 08/26/22 04:56 134 H 99 08/26/22 04:53 120 H 132/65 08/26/22 04:51 119 H 98 08/26/22 04:46 126 H 99 08/26/22 04:41 120 H 98 08/26/22 04:39 120 H 129/67 08/26/22 04:36 118 H 98 08/26/22 04:31 125 H 97 08/26/22 04:26 123 H 98 08/26/22 04:24 37.0 C 123 H 16 118/67 08/26/22 04:21 122 H 95 08/26/22 04:18 124 H 94 08/26/22 04:16 116 H 95 08/26/22 04:11 115 H 100 08/26/22 04:06 136 H 99 08/26/22 04:03 121 H 123/71 08/26/22 04:01 124 H 97 08/26/22 03:59 105 H 135/75 08/26/22 03:56 122 H 97 08/26/22 03:53 107 H 128/67 08/26/22 03:51 116 H 97 08/26/22 03:48 112 H 130/71 08/26/22 03:46 118 H 98 08/26/22 03:43 114 H 128/72 08/26/22 03:41 113 H 97 08/26/22 03:38 117 H 122/66 08/26/22 03:36 116 H 97 08/26/22 03:33 113 H 127/69 08/26/22 03:31 115 H 96 08/26/22 03:28 115 H 116/53 L 08/26/22 03:26 110 H 96 08/26/22 03:23 112 H 108/51 L 08/26/22 03:21 113 H 96 08/26/22 03:19 109 H 112/57 L 08/26/22 03:16 119 H 96 08/26/22 03:14 109 H 111/54 L 08/26/22 03:11 109 H 96 08/26/22 03:09 111 H 109/54 L 08/26/22 03:06 111 H 96 08/26/22 03:03 123 H 120/55 L 08/26/22 03:01 121 H 97 08/26/22 02:56 101 H 97 08/26/22 02:55 122 H 127/76 08/26/22 02:53 103 H 121/70 08/26/22 02:51 108 H 96 08/26/22 02:50 113 H 129/76 08/26/22 02:46 116 H 95 08/26/22 02:41 128 H 97 08/26/22 02:37 121 H 127/72 08/26/22 02:36 118 H 97 08/26/22 02:31 124 H 100 08/26/22 02:26 116 H 100 08/26/22 02:21 123 H 100 08/26/22 02:22 117 H 120/67 08/26/22 02:18 122 H 92 08/26/22 02:16 128 H 98 08/26/22 02:11 119 H 96 08/26/22 02:08 36.8 C 107 H 18 126/65 08/26/22 02:06 110 H 97 08/26/22 02:01 117 H 97 08/26/22 01:56 115 H 100 08/26/22 01:54 116 H 115/57 L 08/26/22 01:51 111 H 100 08/26/22 01:46 115 H 100 08/26/22 01:41 118 H 99 08/26/22 01:37 120 H 121/57 L 08/26/22 01:36 126 H 98 08/26/22 01:31 132 H 99 08/26/22 01:26 125 H 96 08/26/22 01:21 121 H 98 08/26/22 01:22 120 H 140/78 08/26/22 01:16 130 H 100 08/26/22 01:11 124 H 98 08/26/22 01:09 127 H 131/75 08/26/22 01:06 115 H 98 08/26/22 01:01 118 H 97 08/26/22 00:56 120 H 98 08/26/22 00:51 120 H 100 08/26/22 00:46 118 H 98 08/26/22 00:41 111 H 100 08/26/22 00:39 36.9 C 112 H 16 138/96 08/26/22 00:36 105 H 98 08/26/22 00:31 127 H 99 08/26/22 00:26 102 H 100 08/26/22 00:22 111 H 124/57 L 08/26/22 00:21 108 H 98 08/26/22 00:16 115 H 98 08/26/22 00:11 113 H 99 08/26/22 00:07 134 H 132/57 L 08/26/22 00:06 129 H 99 08/26/22 00:01 121 H 98 08/25/22 23:56 122 H 98 08/25/22 23:51 139 H 98 08/25/22 23:46 133 H 99 08/25/22 23:41 124 H 97 08/25/22 23:36 126 H 99 08/25/22 23:37 127 H 127/66 08/25/22 23:31 126 H 96 08/25/22 23:26 117 H 96 08/25/22 23:22 123 H 123/61 08/25/22 23:21 118 H 96 08/25/22 23:16 120 H 96 08/25/22 23:11 117 H 97 08/25/22 23:06 121 H 96 08/25/22 23:07 120 H 126/66 08/25/22 23:01 111 H 97 08/25/22 22:56 112 H 97 08/25/22 22:52 116 H 132/72 08/25/22 22:51 127 H 98 08/25/22 22:46 108 H 97 08/25/22 22:41 108 H 97 08/25/22 22:36 113 H 97 08/25/22 22:37 114 H 119/70 08/25/22 22:31 114 H 97 08/25/22 22:26 110 H 99 08/25/22 22:24 115 H 135/80 08/25/22 22:21 108 H 99 08/25/22 22:16 107 H 99 08/25/22 22:11 111 H 98 08/25/22 22:08 104 H 126/69 08/25/22 22:06 117 H 99 08/25/22 22:01 109 H 100 08/25/22 21:56 113 H 97 08/25/22 21:52 108 H 135/88 08/25/22 21:51 106 H 98 08/25/22 21:46 115 H 99 08/25/22 21:41 102 H 100 08/25/22 21:36 120 H 100 08/25/22 21:37 106 H 119/61 08/25/22 21:31 98 H 98 08/25/22 21:26 112 H 98 08/25/22 21:21 108 H 98 08/25/22 21:22 109 H 121/59 L 08/25/22 21:16 100 H 98 08/25/22 21:11 102 H 98 08/25/22 21:08 106 H 123/56 L 08/25/22 21:06 101 H 98 08/25/22 21:01 100 H 98 08/25/22 20:56 120 H 100 08/25/22 20:51 120 H 96 08/25/22 20:52 37.0 C 125 H 16 127/73 08/25/22 20:46 112 H 99 08/25/22 20:41 110 H 99 08/25/22 20:39 115 H 133/74 08/25/22 20:36 111 H 98 08/25/22 20:31 124 H 99 08/25/22 20:26 114 H 98 08/25/22 20:23 117 H 131/73 08/25/22 20:21 146 H 100 08/25/22 20:16 111 H 100 08/25/22 20:11 109 H 100 08/25/22 20:08 106 H 132/72 08/25/22 20:06 107 H 98 08/25/22 20:01 107 H 99 08/25/22 19:56 108 H 99 08/25/22 19:51 113 H 100 08/25/22 19:52 107 H 140/75 08/25/22 19:46 106 H 100 08/25/22 19:41 101 H 99 08/25/22 19:38 103 H 128/72 08/25/22 19:36 102 H 100 08/25/22 19:31 119 H 100 08/25/22 19:26 112 H 99 08/25/22 19:23 93 H 126/70 08/25/22 19:21 102 H 100 08/25/22 19:16 99 H 99 08/25/22 19:11 106 H 99 08/25/22 19:06 37.0 C 98 H 17 125/67 100 08/25/22 18:45 16 08/25/22 18:45 16 08/25/22 19:01 97 H 100 08/25/22 19:02 99 H 138/72 08/25/22 18:56 98 H 123/73 99 08/25/22 18:51 102 H 100 08/25/22 18:52 97 H 124/72 08/25/22 18:48 88 122/73 08/25/22 18:46 96 H 99 08/25/22 18:15 18 08/25/22 18:15 18 08/25/22 18:30 18 08/25/22 18:30 37.3 C 18 08/25/22 18:41 93 H 127/70 100 08/25/22 18:36 90 118/63 99 08/25/22 18:33 94 H 128/74 08/25/22 18:31 95 H 100 08/25/22 18:27 78 147/77 H 08/25/22 18:26 79 100 08/25/22 18:21 86 99 08/25/22 18:22 81 108/55 L 08/25/22 18:16 93 H 98 08/25/22 18:17 93 H 107/63 08/25/22 18:11 94 H 99 08/25/22 18:12 93 H 109/55 L 08/25/22 18:06 96 H 100 08/25/22 18:07 97 H 124/59 L 08/25/22 18:01 105 H 99 08/25/22 18:00 88 117/65 08/25/22 17:58 109 H 118/68 08/25/22 17:56 99 08/25/22 17:56 90 08/25/22 17:56 84 120/66 08/25/22 17:54 94 H 122/66 08/25/22 17:51 100 H 100 08/25/22 17:46 105 H 100 08/25/22 17:41 101 H 100 08/25/22 17:36 120 H 100 08/25/22 17:31 115 H 99 08/25/22 17:26 117 H 99 08/25/22 17:21 129 H 98 08/25/22 17:16 121 H 97 08/25/22 17:02 114 H 129/85 08/25/22 16:02 99 H 130/83 Pain Intensity Abdomen: Pain Intensity: 2 Transfer of Care Handoff Completed per policy Notes Mental Status: alert / awake / arousable Patient Amnestic to Procedure: Yes Nausea / Vomiting: adequately controlled Pain: adequately controlled Airway Patency, RR, SpO2: stable & adequate BP & HR: stable & adequate Hydration State: stable & adequate Anesthetic Complications: no major complications apparent
[2022-08-26] MEDS: LACTATED RINGER'S 1,000 ML IV SCH ×2 (17:29→23:44)
[2022-08-26] MEDS: SIMETHICONE 80 MG CHEW PO SCH ×2 (17:35→21:19)
[2022-08-26] MEDS: DOCUSATE SODIUM 100 MG CAP PO SCH (21:19)
[2022-08-27] MEDS: KETOROLAC 30 MG/ML VIAL IV PRN (06:12)
--- NOTE | 2022-08-27 06:34 | Obstetrical Progress Note ---
Date of Service <Stacy Wren MD - Last Filed: 08/27/22 06:40> August 27, 2022 Assessment & Plan <Stacy Wren MD - Last Filed: 08/27/22 06:40> (1) examination following delivery: 27 y/o at 39+wks who presented for IOL had failure to progress to active stage of labor thus required c/s now POD1. Overall doing well. Tolerating PO. Encourage ambulation. Satisfactory post progress. PNC complicated by gdm, polyhydramnios, LGA. PNL rh pos, RI, GBS neg <Alessandra Naqvi MD - Last Filed: 08/27/22 07:27> (1) examination following delivery: Subjective <Stacy Wren MD - Last Filed: 08/27/22 06:40> Ambulation: limited ambulation Voiding: kent catheter in place Passing Gas:: Yes Diet Tolerance:: regular diet Feeding Type:: breast feeding Current Pain Level(1-10): 3 Review of Systems no f/c/SOB/CP/palpitations/wheezing/dysuria Physical Exam <Stacy Wren MD - Last Filed: 08/27/22 06:40> Constitutional WD/WN, vitals as above Cardiovascular RRR, no murmur, no edema (tachycardic) Extremities: no calf tenderness Genitourinary OB Exam Abdomen: + fundal height (@ the level) Fundus: + firm c/d/i no erythema no dehiscence Results & Data ([facility]) <Stacy Wren MD - Last Filed: 08/27/22 06:40> Vital Signs (Past 12 Hours) Vital Signs Temp Pulse Resp BP Pulse Ox O2 Del Method 08/27/22 06:20 18 100 08/27/22 05:19 16 94 08/27/22 04:26 16 96 08/27/22 04:03 Room Air 08/27/22 03:50 18 100 08/27/22 03:50 36.7 C 115 H 18 112/73 100 Room Air 08/27/22 01:30 16 97 08/27/22 02:40 16 96 08/26/22 23:35 16 100 08/27/22 00:20 16 100 08/27/22 00:20 36.7 C 106 H 16 113/68 100 Room Air 08/26/22 21:25 18 99 08/26/22 22:31 18 99 08/26/22 19:20 18 100 08/26/22 20:50 18 99 08/26/22 20:50 Room Air 08/26/22 20:50 36.8 C 111 H 18 136/81 99 Room Air <Alessandra Naqvi MD - Last Filed: 08/27/22 07:27> Co-Signing Physician Notes Resident Physician Supervision Note: I interviewed and examined the patient. Discussed with Dr. Wren and agree with findings and plan as documented in the note. Any exceptions or clarifications are listed here: [ ] Documented By: Alessandra Naqvi MD, FACOG Resident Activity Tracking <Stacy Wren MD - Last Filed: 08/27/22 06:40> Resident Involvement: Resident Care Provided Care Provided: Adult Hospital Medicine and OB Delivery
[2022-08-27] MEDS ORDERED: MEPERIDINE HCL 50 MG/ML CARP IV PRN (06:41)
[2022-08-27] MEDS ORDERED: KETOROLAC 30 MG/ML VIAL IV PRN (06:41)
[2022-08-27] MEDS ORDERED: PROMETHAZINE HCL 25 MG in SODIUM CHLORIDE 0.9% 50 ML IV PRN (06:41)
[2022-08-27] MEDS ORDERED: ONDANSETRON INJ 2 MG/ML 2 ML VIAL IV PRN (06:41)
[2022-08-27] MEDS ORDERED: oxyCODONE/ACETAMINOPHEN 5mg/325mg TAB PO PRN (06:41)
[2022-08-27] MEDS ORDERED: diphenhydrAMINE 50 MG/ML VIAL IV PRN (06:41)
[2022-08-27] MEDS ORDERED: diphenhydrAMINE Capsule 25 MG CAP PO PRN (06:41)
[2022-08-27 07:13] LABS: Basophils # (auto) 0.03 K/uL (0-0.2); Basophils % (auto) 0.2 %; Eosinophils # (auto) 0.07 K/uL (0-0.50); Eosinophils % (auto) 0.4 %; Hematocrit (blood only) 28.2 % (34.1-44.9); Hemoglobin 9.6 g/dl (12.0-16.0); Immature Granulocytes # (auto) 0.23 K/uL (0.00-0.02); Immature Granulocytes % (auto) 1.4 %; Lymphocytes # (auto) 1.59 K/uL (1.2-3.4); Lymphocytes % (auto) 9.4 %; Mean Corpuscular Hemoglobin 32.5 pg (25.0-34.0); Mean Corpuscular Volume 95.6 fL (80.0-100.0); Mean Platelet Volume 10.6 fL (9.4-12.3); Monocytes # (auto) 1.03 K/uL (0.24-0.82); Monocytes % (auto) 6.1 %; Neutrophils # (auto) 13.99 K/uL (1.4-6.5); Neutrophils % (auto) 82.5 %; Platelet Count 186 K/uL (130-400); RDW Coefficient of Variation 13.6 % (11.5-14.5); RDW Standard Deviation 47.5 fL (36.4-46.3); Red Blood Count 2.95 M/uL (3.93-5.22); White Blood Count 16.94 K/ul (4.8-10.8)
[2022-08-27] MEDS: SIMETHICONE 80 MG CHEW PO SCH ×4 (08:38→20:44)
[2022-08-27] MEDS: PRENATAL VITAMIN 1 TAB PO SCH (08:39)
[2022-08-27] MEDS: FERROUS SULFATE 325 MG TAB PO SCH (08:39)
[2022-08-27] MEDS: DOCUSATE SODIUM 100 MG CAP PO SCH ×2 (08:39→20:44)
[2022-08-27] MEDS: IBUPROFEN 600 MG TAB PO PRN ×2 (14:57→21:51)
[2022-08-27] MEDS ORDERED: bisacodyL 5 MG TABEC PO SCH (20:00)
--- NOTE | 2022-08-28 06:38 | Obstetrical Progress Note ---
Date of Service <Stacy Wren MD - Last Filed: 08/28/22 07:49> August 28, 2022 Assessment & Plan <Stacy Wren MD - Last Filed: 08/28/22 07:49> (1) examination following delivery: 27 y/o at 39+wks who presented for IOL had failure to progress to active stage of labor thus required c/s now POD2. Overall doing well. Tolerating PO. Encourage ambulation. Satisfactory post progress. PNC complicated by gdm, polyhydramnios, LGA. PNL rh pos, RI, GBS neg <Cheri Bahena MD, FACOG - Last Filed: 08/28/22 08:04> (1) examination following delivery: Subjective <Stacy Wren MD - Last Filed: 08/28/22 07:49> Ambulation: ambulating normally Voiding: no voiding problems Passing Gas:: Yes Diet Tolerance:: regular diet Lochia:: Small Physical Exam <Stacy Wren MD - Last Filed: 08/28/22 07:49> Constitutional WD/WN, vitals as above Cardiovascular RRR, no murmur, no edema (tachycardic) Extremities: no calf tenderness Genitourinary OB Exam Abdomen: + fundal height (@ the level) Fundus: + firm incision c/d/i Results & Data ([facility]) <Stacy Wren MD - Last Filed: 08/28/22 07:49> Vital Signs (Past 12 Hours) Vital Signs Temp Pulse Resp BP Pulse Ox O2 Del Method 08/28/22 00:45 36.4 C L 70 18 106/70 98 Room Air <Cheri Bahena MD, FACOG - Last Filed: 08/28/22 08:04> Co-Signing Physician Notes Resident Physician Supervision Note: I interviewed and examined the patient. Discussed with Dr. Wren and agree with findings and plan as documented in the note. Any exceptions or clarifications are listed here: Doing well. Feeling good. Plan d/c. Instructions given. Documented By: Cheri Bahena MD, FACOG Resident Activity Tracking <Stacy Wren MD - Last Filed: 08/28/22 07:49> Resident Involvement: Resident Care Provided Care Provided: OB Delivery
[2022-08-28 07:04] LABS: Hematocrit (blood only) 25.2 % (34.1-44.9); Hemoglobin 8.7 g/dl (12.0-16.0)
--- NOTE | 2022-08-28 08:17 | Medical Student Progress Note ---
Date of Service August 28, 2022 Assessment & Plan (1) examination following delivery: Plan: Assessment: Cass is a 27 y/o female who is POD #2 from a at 39+4 EGA who is recovering well. Her reported symptoms are reassuring and her surgical incision is healing well. She feels ready to go home today. Plan: Encourage ambulation and movement as tolerated, maintain a clean and dry incision site, and discharge today. Admission and Anticipated Discharge Date Admission Date: August 25, 2022 Ericka Odell is a 27 y/o female who is POD #2 from a at 39+4 EGA performed for prolonged course of active labor. Her was complicated by GDM and a LGA fetus. Today she is ambulating, voiding, and passing gas well, but has not yet had a bowel movement. She is tolerating a regular diet without nausea or vomiting. She does not report fevers, chills, shortness of breath/coughing/dyspnea, chest pain/palpitations, breast pain, or headache/vision changes. Her pain is a 0/10 while resting and a 2/10 when sitting up/walking around but she feels ready to go home today. Physical Exam Constitutional: well developed and well nourished Neck: normal visual inspection Respiratory: normal respiratory effort Auscultation: lungs clear to auscultation bilaterally Cardiovascular: Rate/Rhythm: regular rate and regular rhythm Heart Sounds: normal S1 and normal S2 Extremities: no calf tenderness, no pedal edema and n o edema Gastrointestinal (Abdomen): Inspection/Auscultation: abdomen normal to inspection and normal bowel sounds Percussion/Palpation: + abdomen tender Musculoskeletal: Head/Neck/Chest: normocephalic and head atraumatic Extremities: extremities normal to inspection Skin: no rashes, warm and dry + incision Psychiatric: Orientation: alert, oriented to person, oriented to place and oriented to time Affect: euthymic affect Genitourinary: OB Exam Abdomen: + fundal height (at level of umbilicus) Fundus: + firm, + tender and + relation to umbilicus Results & Data ([facility]) Vital Signs (Past 12 Hours) Vital Signs Temp Pulse Resp BP Pulse Ox O2 Del Method 08/28/22 00:45 36.4 C L 70 18 106/70 98 Room Air
[2022-08-28] MEDS: SIMETHICONE 80 MG CHEW PO SCH (08:22)
[2022-08-28] MEDS: DOCUSATE SODIUM 100 MG CAP PO SCH (08:23)
[2022-08-28] MEDS: IBUPROFEN 600 MG TAB PO PRN (08:23)
[2022-08-28] MEDS: PRENATAL VITAMIN 1 TAB PO SCH (08:24)
[2022-08-28] MEDS: FERROUS SULFATE 325 MG TAB PO SCH (08:24)
[2022-08-28] MEDS ORDERED: bisacodyL 10 MG SUPP PR PRN (13:05)
--- NOTE | 2022-08-29 13:59 | Discharge Summary ---
Date of Service August 29, 2022 Admission HPI Per Admitting Provider 27 yo G1 at 39 4/7 wga w/ WHIT 12 by LMP presents for IOL due to poly, A1GDM. Of note, baby is suspected to be LGA. +FM; denies regular ctx, LOF, VB. Amado bulb was placed last evening but fell out shortly before discharge PNI: Polyhydramnios A1GDM Past [employer] Hx: G1 q25d cycles denies hx STIs 05/2019 neg cyto Discharge Data Consultations 08/25/22 07:20 Consult Anesthesiology Stat Procedures Performed Operation Date: 08/26/22 12:00 Actual Procedures p Section in LD(Bilateral) - Alessandra Naqvi MD Hospital Course (1) Gestational diabetes mellitus (GDM) affecting , antepartum: Patient with LGA fetus, underwent IOL at her request and on day 3 of induction underwent primary low transverse delivery for failure to progress in labor and suspected CPD. Delivery was uncomplicated and the patient was discharged to home with typical postop recovery plan, 6 week follow up, and postop pain medication. (2) Polyhydramnios affecting : (3) Non-dilated cervix in term : (4) Encounter for induction of labor: (5) examination following delivery: Coding Level of Care Code None Diagnoses Gestational diabetes mellitus (GDM) affecting , antepartum O24.419 Polyhydramnios affecting O40.9XX0 Non-dilated cervix in term O34.40 Encounter for induction of labor Z34.90 examination following delivery Z39.2
== END 2022-08-28 11:20 | disposition home or self-care (01) | DRG 788 ==
LOC: 4S1 07:01 → 4E2 08-26 16:32
DX: O62.0 Primary inadequate contractions; O36.63X0 Maternal care for excessive fetal growth, third trimester, not applicable or unspecified; Z3A.39 39 weeks gestation of pregnancy; O77.0 Labor and delivery complicated by meconium in amniotic fluid; O33.9 Maternal care for disproportion, unspecified; Z37.0 Single live birth; O40.3XX0 Polyhydramnios, third trimester, not applicable or unspecified; O24.420 Gestational diabetes mellitus in childbirth, diet controlled; O69.81X0 Labor and delivery complicated by cord around neck, without compression, not applicable or unspecified